=== PATIENT | female | born 1935 | race Caucasian/White ===

== ENCOUNTER 2016-12-31 07:36 | Day surgery (SDC) | payer MEDICARE, BC ==
--- NOTE | 2016-12-28 14:26 | HP ---
HISTORY OF PRESENT ILLNESS: Ms. Marino is a 81-year-old white female who was referred by her [facility] physician, Dr. Redmond for left labial lesion. She had a biopsy done by Dr. 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 She is ref erred today for definitive surgical therapy. She has previous hysterectomy in the past and also anterior repair with posterior elevate in 2010, w jose I performed. She does wear a incontinence pad daily and she is using Myrbetriq, but it is not helping much. PAST MEDICAL HISTORY: Significant for hyperlipidemia, glaucoma, GERD. PAST SURGICAL HISTORY: As noted, hysterectomy, anterior repair with posterior elevate, tonsillectom y, appendectomy, cholecystectomy. SOCIAL HISTORY: She is a nonsmoker, does not drink alcohol. ALLERGIES: She has no known drug allergies. FAMILY HISTORY: Noncontributory. PHYSICAL EXAMINATION: VITAL SIGNS: Her blood pressure is 120/60, pulse 80, respirations 18, height 63 inches, 135 pounds. BMI 23.9. PELVIC: She has approximately 1 cm area in the left labial minora region seen. There are no other abnormal lesions as the vulva appreciated vaginal vault without lesions. No significant cystocele or rectocele were appreciated. No mesh erosion of the posterior elevate was noted. ASSESSMENT: This is a 81-year-old white female with recent vulvar biopsy of the left vulva showing a high grade squamous cell dysplastic lesion. PLAN: Proceed with wide local excision of the lesion to rule out microinvasive cancer and also to t reat dysplasia. Risks and benefits of procedure discussed in detail, set for surgery on 12/31/2016.
[2016-12-28 14:37] VITALS: BMI 23.9
[2016-12-31] MEDS ORDERED: Lidocaine 2% w/Epinephrine 1:200K 20 ML VIAL ONE (08:15)
[2016-12-31] MEDS ORDERED: Clindamycin/D5W 900 mg/50 ml Premix Bag ONE (08:20)
[2016-12-31] MEDS ORDERED: Levofloxacin 500 mg/D5W 100 ml Premix Bag ONE (08:20)
[2016-12-31] MEDS ORDERED: Propofol 500 MG/50 ML VIAL ONE (08:37)
[2016-12-31] MEDS ORDERED: Propofol 200 MG/20 ML VIAL ONE (08:53)
--- NOTE | 2016-12-31 12:31 | OP ---
DATE OF PROCEDURE: 12/31/2016 PREOPERATIVE DIAGNOSES: A 81-year-old white female with left labial minora with high grade vulvar d ysplasia. 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 PROCEDURE PERFORMED: Wide local excision of left labia minora lesion. SURGEON: Liss Cueva M.D. ANESTHESIA: TIVA with local. ESTIMATED BLOOD LOSS: Less than 5 mL COMPLICATIONS: None. COUNTS: Correct x2. PATHOLOGY: Lesion with approximately 5 mm margins and elliptical removal. DISPOSITION: To the day stay and then plan for discharge home with follow up in 2-3 weeks. DESCRIPTION OF OPERATIVE PROCEDURE: The patient previously received informed consent. She is taken back to the operating room where she received a TIVA anesthetic agent by the Anesthesia service and was placed in dorsal lithotomy position with use of Alfredo stirrups. In and out catheterization of bladder was performed while sterile prep was carried out. The lesion was seen approximately 5 mm le martín in the left labial minora area was visualized. An elliptical margin was carried out approximat alyssa 5 mm both around the lesion with a marking pen. A 2% lidocaine with epinephrine was then infilt rated in that area and then #15 blade was utilized to remove the lesion with the margin elliptical m joao. Deep interrupted sutures of 2-0 Vicryl placed closing off the defect and also for hemostasis and then interrupted sutures, the superficial layer was then carried out superiorly and inferiorly closing the defect in its entirety with good hemostasis. The patient was then awakened out of her I V sedation and transferred to the day stay area and planned for discharge home today with followup o f her pathology in approximately 2-3 days.
== END 2016-12-31 10:25 | disposition home or self-care (01) ==
LOC: SDC 07:36
PROVIDERS: ATTEND Obstetrics & Gynecology
PROC: 0UBM0ZZ Excision of Vulva, Open Approach (ICD-10-PCS; principal; 2016-12-31)
DX: N90.3 Dysplasia of vulva, unspecified (principal); E78.5 Hyperlipidemia, unspecified; K21.9 Gastro-esophageal reflux disease without esophagitis; H40.9 Unspecified glaucoma; Z88.0 Allergy status to penicillin; Z90.49 Acquired absence of other specified parts of digestive tract; Z90.710 Acquired absence of both cervix and uterus; Z96.659 Presence of unspecified artificial knee joint; Z98.890 Other specified postprocedural states
CPT/HCPCS: 88305; J1956; J2704; J3490

== ENCOUNTER 2018-07-30 12:45 | Outpatient (CLI) | payer MEDICARE, BC ==
--- NOTE | 2018-07-30 15:32 | BD ---
DEXA SCAN: INDICATION: Osteoporosis screening. FINDINGS: Lumbar Spine: BMD (g/cm2) L1 0.971 T-Score: -0.2 Z-Score: 2.2 L2 0.944 T-Score: -0.8 Z-Score: 1.9 L3 1.041 T-Score: -0.4 Z-Score: 2.4 L4 0.930 T-Score: -1.2 Z-Score: 1.7 L1-L4 0.972 T-Score: -0.7 Z-Score: 2.1 Femoral Neck: 0.579 T-Score: -2.4 Z-Score: -0.1 Total Femur: 0.882 T-Score: -0.5 Z-Score: 1.7 Impression: Based on WHO criteria, the patient's bone mineral density is considered osteopenic. The patient is a t moderate risk for fracture. POS: [facility]PC
== END 2018-07-30 12:46 | disposition home or self-care (01) ==
LOC: BICMAMMO 12:45
PROVIDERS: ATTEND Internal Medicine Rheumatology
DX: M81.0 Age-related osteoporosis without current pathological fracture (principal); M85.89 Other specified disorders of bone density and structure, multiple sites
CPT/HCPCS: 77080

== ENCOUNTER 2021-05-27 14:39 | Inpatient (IN) | payer MEDICARE, BC ==
[2021-05-27 15:50] LABS: #Basophils 0.1 thou/uL (0.0-0.2); #Eosinphils 0.2 thou/uL (0.0-0.7); #Lymphocytes 1.4 thou/uL (1.20-3.40); #Monocytes 1.1 thou/uL (0.11-0.59); #Neutrophils 6.5 thou/uL (1.40-6.50); %Basophils 0.7 % (0.0-1.0); %Eosinophils 2.7 % (0.0-10.0); %Monocytes 11.4 % (0.0-10.0); %Neutrophils 70.2 % (42.0-75.0); Hemoglobin 5.9 g/dL (12.0-16.0); Mean Corpuscular HGB CONC 29.9 g/dL (32.0-36.0); Mean Corpuscular Hemoglobin 18.2 pg (27.0-31.0); Mean Corpuscular Volume 60.7 fL (78.0-98.0); Mean Platelet Volume 5.7 fL (7.4-10.4); Platelet Count 383 thou/uL (130-400); RBC Distribution Width 20.9 % (11.5-14.5); Red Blood Cell (RBC) Count 3.25 mill/uL (4.20-5.40); Reflex for Review?? YES; White Blood Cell (WBC) Count 9.2 thou/uL (4.8-10.8)
[2021-05-27 15:54] LABS: PTT 27.1 sec (22.9-36.1); Prothrombin Time 13.2 sec (12.0-14.7)
[2021-05-27 16:08] LABS: Anisocytosis MODERATE=16-30 cells (100X) (0-5/hpf); Burr Cells SLIGHT = 2-5 cells (100X) (0-1/hpf); Hypochromia SLIGHT = 6-15 cells (100X) (0-5/hpf); MDiff Complete? YES; Microcytosis SLIGHT = 6-15 cells (100X) (0-5/hpf); Ovalocytes SLIGHT = 2-5 cells (100X) (0-1/hpf); Platelet Morphology Comment Appears Adequate; Polychromasia SLIGHT = 2-3 cells (100X) (0-2/hpf); Target Cells SLIGHT = 2-5 cells (100X) (0-1/hpf)
[2021-05-27 16:20] LABS: ALT (SGPT) 15 U/L (8-55); AST (SGOT) 47 U/L (5-34); Albumin 3.5 g/dL (3.4-4.8); Alkaline Phosphatase 73 U/L (40-110); Anion Gap 17 mmol/L (10-20); BUN (Urea Nitrogen) 42 mg/dL (9.8-20.1); Bilirubin, Total 0.6 mg/dL (0.2-1.2); CK (CPK) 53 U/L (29-168); Calc. Creatinine Clearance 0 mL/min (70-130); Calcium 8.5 mg/dL (7.8-10.44); Carbon Dioxide 21 mmol/L (23-31); Chloride 104 mmol/L (98-107); Globulin 3.3 g/dL (2.4-3.5); Glucose 132 mg/dL (83-110); Potassium 4.9 mmol/L (3.5-5.1); Protein, Total 6.8 g/dL (5.8-8.1); Sodium 137 mmol/L (136-145)
[2021-05-27 16:25] LABS: CKMB 0.9 ng/mL (0-6.6)
[2021-05-27 17:31] LABS: Troponin I 0.047 ng/mL (< 0.028)
[2021-05-27] MEDS ORDERED: Acetaminophen 325 MG TAB PO PRN (18:22)
[2021-05-27] MEDS ORDERED: Acetaminophen 650 MG Suppository PR PRN (18:22)
[2021-05-27] MEDS ORDERED: Ondansetron PF 4 MG/2 ML Vial IVP PRN (18:22)
[2021-05-27] MEDS ORDERED: Melatonin 3 MG TAB PO PRN (18:31)
[2021-05-27] MEDS: Atorvastatin Calcium 40 MG TAB PO SCH ×2 (21:02→21:11)
[2021-05-27] MEDS: Pantoprazole 40 MG VIAL IVP SCH (21:02)
[2021-05-27] MEDS: hydrALAZINE 20 MG/ML VIAL SLOW IVP PRN (22:45)
[2021-05-28] MEDS: hydrALAZINE 20 MG/ML VIAL SLOW IVP PRN ×2 (03:05→12:46)
[2021-05-28] MEDS: Sodium Chloride 0.9% 1,000 ML IV SCH ×2 (03:05→23:30)
[2021-05-28 05:18] LABS: Hemoglobin 9.6 g/dL (12.0-16.0); Mean Corpuscular Hemoglobin 21.2 pg (27.0-31.0); Mean Corpuscular Volume 70.5 fL (78.0-98.0); Mean Platelet Volume 5.2 fL (7.4-10.4); Platelet Count 386 thou/uL (130-400); RBC Distribution Width 27.1 % (11.5-14.5); Red Blood Cell (RBC) Count 4.56 mill/uL (4.20-5.40); White Blood Cell (WBC) Count 12.4 thou/uL (4.8-10.8)
[2021-05-28 05:51] LABS: #Basophils 0.1 thou/uL (0.0-0.2); #Eosinphils 0.3 thou/uL (0.0-0.7); #Lymphocytes 1.6 thou/uL (1.20-3.40); #Neutrophils 9.4 thou/uL (1.40-6.50); %Basophils 0.7 % (0.0-1.0); %Eosinophils 2.8 % (0.0-10.0); %Lymphocytes 12.9 % (21.0-51.0); %Monocytes 8.3 % (0.0-10.0); %Neutrophils 75.4 % (42.0-75.0); Anisocytosis SLIGHT = 6-15 cells (100X) (0-5/hpf); Hypochromia SLIGHT = 6-15 cells (100X) (0-5/hpf); LDL Cholesterol, Calculated 55 mg/dL; MDiff Complete? YES; Microcytosis SLIGHT = 6-15 cells (100X) (0-5/hpf)
[2021-05-28 05:59] LABS: ALT (SGPT) 12 U/L (8-55); AST (SGOT) 27 U/L (5-34); Albumin 3.7 g/dL (3.4-4.8); Alkaline Phosphatase 73 U/L (40-110); Anion Gap 15 mmol/L (10-20); BUN (Urea Nitrogen) 32 mg/dL (9.8-20.1); Bilirubin, Total 2.2 mg/dL (0.2-1.2); Calc. Creatinine Clearance 29 mL/min (70-130); Calcium 8.7 mg/dL (7.8-10.44); Carbon Dioxide 19 mmol/L (23-31); Cardiac Risk 2.2 (Less than 4.5); Chloride 106 mmol/L (98-107); Cholesterol 150 mg/dl (< 200 Desired); Globulin 3.3 g/dL (2.4-3.5); Glucose 119 mg/dL (83-110); HDL Cholesterol 68 mg/dL (>60 Neg Risk); Iron 81 ug/dL (50-170); Iron Binding Capacity, Total 501 mcg/dL (265-497); Sodium 136 mmol/L (136-145)
[2021-05-28 06:18] LABS: Triglycerides 160 mg/dL (Less than 150)
[2021-05-28] MEDS: Pantoprazole 40 MG VIAL IVP SCH ×2 (07:37→20:02)
[2021-05-28 15:16] LABS: SARS-CoV-2 PCR by NAA Not Detected (NotDetected)
[2021-05-28] MEDS ORDERED: GoLYTELY 4,000 ml Bottle PO SCH (15:30)
[2021-05-28] MEDS: Atorvastatin Calcium 40 MG TAB PO SCH (19:59)
[2021-05-28] MEDS: Metoprolol Tartrate 25 MG TAB PO SCH (19:59)
[2021-05-29] MEDS: hydrALAZINE 20 MG/ML VIAL SLOW IVP PRN ×2 (04:56→15:12)
[2021-05-29] MEDS: Metoprolol Tartrate 25 MG TAB PO SCH ×2 (07:56→21:23)
[2021-05-29] MEDS: Pantoprazole 40 MG VIAL IVP SCH ×2 (07:56→21:23)
[2021-05-29] MEDS ORDERED: PROPOFOL 200 MG/20 ML VIAL ONE (10:17)
[2021-05-29] MEDS: metroNIDAZOLE 500 MG in Premix Bag 1 BAG IVPB SCH (17:41)
[2021-05-29] MEDS: Atorvastatin Calcium 40 MG TAB PO SCH (21:22)
[2021-05-29] MEDS: Sodium Chloride 0.9% 1,000 ML IV SCH (21:23)
[2021-05-30] MEDS: metroNIDAZOLE 500 MG in Premix Bag 1 BAG IVPB SCH ×3 (02:34→18:37)
[2021-05-30 05:14] LABS: Hemoglobin 8.3 g/dL (12.0-16.0); Mean Corpuscular HGB CONC 31.5 g/dL (32.0-36.0); Mean Corpuscular Hemoglobin 22.1 pg (27.0-31.0); Mean Corpuscular Volume 70.3 fL (78.0-98.0); Mean Platelet Volume 5.6 fL (7.4-10.4); Platelet Count 320 thou/uL (130-400); RBC Distribution Width 28.1 % (11.5-14.5); Red Blood Cell (RBC) Count 3.75 mill/uL (4.20-5.40); White Blood Cell (WBC) Count 10.2 thou/uL (4.8-10.8)
[2021-05-30 05:29] LABS: ALT (SGPT) 25 U/L (8-55); AST (SGOT) 31 U/L (5-34); Albumin 3.1 g/dL (3.4-4.8); Alkaline Phosphatase 64 U/L (40-110); Anion Gap 14 mmol/L (10-20); BUN (Urea Nitrogen) 16 mg/dL (9.8-20.1); Bilirubin, Total 1.9 mg/dL (0.2-1.2); Calc. Creatinine Clearance 33 mL/min (70-130); Calcium 7.9 mg/dL (7.8-10.44); Carbon Dioxide 20 mmol/L (23-31); Chloride 108 mmol/L (98-107); Globulin 2.5 g/dL (2.4-3.5); Glucose 103 mg/dL (83-110); Potassium 3.5 mmol/L (3.5-5.1); Protein, Total 5.6 g/dL (5.8-8.1); Sodium 138 mmol/L (136-145)
[2021-05-30 05:45] LABS: #Basophils 0.1 thou/uL (0.0-0.2); #Eosinphils 0.3 thou/uL (0.0-0.7); #Lymphocytes 1.3 thou/uL (1.20-3.40); #Monocytes 1.2 thou/uL (0.11-0.59); #Neutrophils 7.4 thou/uL (1.40-6.50); %Basophils 0.5 % (0.0-1.0); %Eosinophils 2.7 % (0.0-10.0); %Monocytes 11.3 % (0.0-10.0); %Neutrophils 72.4 % (42.0-75.0); Anisocytosis SLIGHT = 6-15 cells (100X) (0-5/hpf); Hypochromia SLIGHT = 6-15 cells (100X) (0-5/hpf); MDiff Complete? YES; Microcytosis SLIGHT = 6-15 cells (100X) (0-5/hpf)
[2021-05-30] MEDS: Metoprolol Tartrate 25 MG TAB PO SCH (07:48)
[2021-05-30] MEDS: Pantoprazole 40 MG VIAL IVP SCH ×2 (07:48→21:24)
[2021-05-30] MEDS ORDERED: Iron, Sodium Ferric Gluconate 250 MG in Sodium Chloride 0.9% 250 ML 250 ML IVPB SCH (12:30)
[2021-05-30] MEDS ORDERED: Losartan 25 MG TAB PO SCH (16:00)
[2021-05-30] MEDS ORDERED: Hydrocortisone Sod Succ/PF 100 mg/2 ml Vial IVP SCH (16:30)
[2021-05-30 16:51] LABS: #Eosinphils 0.2 thou/uL (0.0-0.7); #Lymphocytes 2.1 thou/uL (1.20-3.40); #Monocytes 0.6 thou/uL (0.11-0.59); #Neutrophils 7.3 thou/uL (1.40-6.50); %Basophils 0.4 % (0.0-1.0); %Eosinophils 2.4 % (0.0-10.0); %Lymphocytes 20.8 % (21.0-51.0); %Monocytes 5.6 % (0.0-10.0); %Neutrophils 70.9 % (42.0-75.0); Hemoglobin 10.7 g/dL (12.0-16.0); Mean Corpuscular HGB CONC 31.2 g/dL (32.0-36.0); Mean Corpuscular Volume 70.4 fL (78.0-98.0); Mean Platelet Volume 5.6 fL (7.4-10.4); Platelet Count 396 thou/uL (130-400); RBC Distribution Width 28.1 % (11.5-14.5); Red Blood Cell (RBC) Count 4.86 mill/uL (4.20-5.40); White Blood Cell (WBC) Count 10.3 thou/uL (4.8-10.8)
[2021-05-30 17:11] LABS: Anion Gap 14 mmol/L (10-20); BUN (Urea Nitrogen) 16 mg/dL (9.8-20.1); Calc. Creatinine Clearance 32 mL/min (70-130); Calcium 7.8 mg/dL (7.8-10.44); Carbon Dioxide 17 mmol/L (23-31); Chloride 109 mmol/L (98-107); Glucose 100 mg/dL (83-110); Potassium 3.6 mmol/L (3.5-5.1); Sodium 136 mmol/L (136-145)
[2021-05-30] MEDS: Sodium Chloride 0.9% 1,000 ML IV SCH (18:23)
[2021-05-30] MEDS: Atorvastatin Calcium 40 MG TAB PO SCH (21:24)
[2021-05-30] MEDS: Hydrocortisone Sod Succ/PF 100 mg/2 ml Vial IVP SCH (21:28)
[2021-05-31] MEDS: metroNIDAZOLE 500 MG in Premix Bag 1 BAG IVPB SCH ×3 (03:20→14:14)
[2021-05-31] MEDS: Hydrocortisone Sod Succ/PF 100 mg/2 ml Vial IVP SCH (05:33)
[2021-05-31 06:33] LABS: #Lymphocytes 0.6 thou/uL (1.20-3.40); #Monocytes 0.3 thou/uL (0.11-0.59); #Neutrophils 12.9 thou/uL (1.40-6.50); %Eosinophils 0.1 % (0.0-10.0); %Lymphocytes 4.3 % (21.0-51.0); %Neutrophils 93.6 % (42.0-75.0); Anisocytosis SLIGHT = 6-15 cells (100X) (0-5/hpf); Hemoglobin 9.1 g/dL (12.0-16.0); MDiff Complete? YES; Mean Corpuscular HGB CONC 29.5 g/dL (32.0-36.0); Mean Corpuscular Hemoglobin 21.2 pg (27.0-31.0); Mean Platelet Volume 5.4 fL (7.4-10.4); Platelet Count 330 thou/uL (130-400); RBC Distribution Width 28.5 % (11.5-14.5); Red Blood Cell (RBC) Count 4.27 mill/uL (4.20-5.40); White Blood Cell (WBC) Count 13.8 thou/uL (4.8-10.8)
[2021-05-31] MEDS: Sodium Chloride 0.9% 1,000 ML IV SCH (06:42)
[2021-05-31] MEDS ORDERED: Sodium Chloride 0.9% 500 ML IV SCH (08:30)
[2021-05-31] MEDS ORDERED: Losartan 25 MG TAB PO SCH (09:00)
[2021-05-31] MEDS: Metoprolol Tartrate 25 MG TAB PO SCH ×2 (09:06→23:59)
[2021-05-31] MEDS: Pantoprazole 40 MG VIAL IVP SCH (09:08)
[2021-05-31 10:20] LABS: Band 6 % (5-11); Lymphocytes 4 % (21-51); Monocytes 1 % (0-10); Neutrophil 89 % (42-75)
[2021-05-31 10:21] LABS: Hypochromia SLIGHT = 6-15 cells (100X) (0-5/hpf); Polychromasia MODERATE = 3-4 cells (100X) (0-2/hpf)
[2021-05-31] MEDS: hydrALAZINE 20 MG/ML VIAL SLOW IVP PRN (14:29)
[2021-05-31 16:37] LABS: INR-International Normal Ratio 1.2; Prothrombin Time 15.4 sec (12.0-14.7)
[2021-05-31 16:38] LABS: PTT 36.1 sec (22.9-36.1)
[2021-05-31] MEDS ORDERED: Lidocaine 1% MPF 2 ML VIAL ONE (19:09)
[2021-05-31] MEDS ORDERED: Fentanyl 100 MCG/2 ML VIAL ONE (19:30)
[2021-05-31] MEDS ORDERED: Ketamine 50 MG/ML (10ML VIAL) ONE (19:31)
[2021-05-31] MEDS ORDERED: Lidocaine 1% PF 5 ML VIAL ONE (19:45)
[2021-05-31] MEDS ORDERED: PROPOFOL 200 MG/20 ML VIAL ONE (19:45)
[2021-05-31] MEDS ORDERED: ePHEDrine 50 MG/ML VIAL ONE (19:45)
[2021-05-31] MEDS ORDERED: Ondansetron PF 4 MG/2 ML Vial ONE (19:45)
[2021-05-31] MEDS ORDERED: Rocuronium Bromide 10 MG/ML (10ML VIAL) ONE (19:45)
[2021-05-31] MEDS ORDERED: PHENYLEPHRINE-NS 100 MCG/ML 10 ML SYRINGE ONE (19:45)
[2021-05-31] MEDS ORDERED: EPINEPHrine 1 MG/ML AMP ONE (19:53)
[2021-05-31] MEDS ORDERED: Bupivacaine 0.25% HCL 30 ML VIAL ONE (19:53)
[2021-05-31] MEDS ORDERED: Albumin 5% 500 ML ONE (20:48)
[2021-05-31] MEDS ORDERED: Albuterol Sulfate HFA (OR ONLY) ONE (22:33)
[2021-05-31] MEDS ORDERED: Morphine 4 MG/ML VIAL SLOW IVP PRN (23:03)
[2021-05-31] MEDS: Lactated Ringer's 1,000 ML IV SCH (23:27)
[2021-05-31] MEDS ORDERED: Acetaminophen 325 MG TAB ONE ×2 (23:46→23:47)
[2021-05-31] MEDS ORDERED: traMADol HCl 50 MG TAB ONE (23:48)
[2021-05-31] MEDS: traMADol HCl 50 MG TAB PO SCH (23:51)
[2021-05-31] MEDS: Acetaminophen 325 MG TAB PO SCH (23:53)
[2021-05-31] MEDS: Atorvastatin Calcium 40 MG TAB PO SCH (23:58)
[2021-06-01 01:10] LABS: Actual Bicarbonate (HCO3a) 13.7 mEq/L (22-28); Base Excess (BEa) -11.9 mEq/L (-2.0 to +3.0); CO2 Tension 30.4 mmHg (35.0-45.0); Calcium, Ionized (arterial) 1.06 mmol/L (1.12-1.30); Carboxyhemoglobin (COHb) 0.6 gm% (0.0-3.0); Hemoglobin (Hb) 9.1 g/dL (12.0-16.0); O2 Tension (PaO2), arterial 90.2 mmHg (> 60.0); Potassium - ABG Lab 3.31 mmol/L (3.70-5.30); pH, Arterial 7.27 (7.35-7.45)
[2021-06-01 01:12] LABS: Puncture Site LRA
[2021-06-01] MEDS ORDERED: Sodium Bicarb 50 MEQ/50 ML Abboject 8.4% SYRINGE ONE (01:21)
[2021-06-01] MEDS ORDERED: Calcium Chloride 1 GM/10 ML Abboject SYRINGE IVP SCH (03:15)
[2021-06-01] MEDS ORDERED: Calcium Chloride 1 GM/10 ML Abboject SYRINGE ONE (03:23)
[2021-06-01 04:22] LABS: Base Excess (BEa) -7.5 mEq/L (-2.0 to +3.0); CO2 Tension 30.7 mmHg (35.0-45.0); Calcium, Ionized (arterial) 1.14 mmol/L (1.12-1.30); Carboxyhemoglobin (COHb) 0.6 gm% (0.0-3.0); Hemoglobin (Hb) 8.8 g/dL (12.0-16.0); O2 Tension (PaO2), arterial 82.3 mmHg (> 60.0); Potassium - ABG Lab 3.26 mmol/L (3.70-5.30); pH, Arterial 7.36 (7.35-7.45)
[2021-06-01 04:24] LABS: ALV-art Gradient 78.965 mmHg (0-20); Puncture Site LRA
[2021-06-01] MEDS: Sodium Chloride 0.9% 1,000 ML IV SCH (04:51)
[2021-06-01 05:01] LABS: Hemoglobin 8.4 g/dL (12.0-16.0); Mean Corpuscular HGB CONC 30.6 g/dL (32.0-36.0); Mean Corpuscular Hemoglobin 22.4 pg (27.0-31.0); Mean Corpuscular Volume 73.3 fL (78.0-98.0); Mean Platelet Volume 5.2 fL (7.4-10.4); Platelet Count 280 thou/uL (130-400); RBC Distribution Width 28.6 % (11.5-14.5); Red Blood Cell (RBC) Count 3.74 mill/uL (4.20-5.40); White Blood Cell (WBC) Count 16.6 thou/uL (4.8-10.8)
[2021-06-01 05:08] LABS: Lactic Acid 3.2 mmol/L (0.5-2.2)
[2021-06-01] MEDS ORDERED: traMADol HCl 50 MG TAB ONE ×3 (05:29→15:48)
[2021-06-01] MEDS ORDERED: Acetaminophen 500 MG TAB ONE (05:29)
[2021-06-01 05:40] LABS: Anion Gap 15 mmol/L (10-20); BUN (Urea Nitrogen) 23 mg/dL (9.8-20.1); Calc. Creatinine Clearance 25 mL/min (70-130); Calcium 8.2 mg/dL (7.8-10.44); Carbon Dioxide 17 mmol/L (23-31); Chloride 109 mmol/L (98-107); Glucose 209 mg/dL (83-110); Magnesium 1.1 mg/dL (1.6-2.6); Potassium 3.2 mmol/L (3.5-5.1); Sodium 138 mmol/L (136-145)
[2021-06-01] MEDS: Acetaminophen 325 MG TAB PO SCH ×3 (05:45→16:11)
[2021-06-01] MEDS: traMADol HCl 50 MG TAB PO SCH ×3 (05:45→16:11)
[2021-06-01 06:07] LABS: #Lymphocytes 0.3 thou/uL (1.20-3.40); #Monocytes 0.9 thou/uL (0.11-0.59); #Neutrophils 15.4 thou/uL (1.40-6.50); %Basophils 0.1 % (0.0-1.0); %Eosinophils 0.1 % (0.0-10.0); %Lymphocytes 1.5 % (21.0-51.0); %Monocytes 5.5 % (0.0-10.0); %Neutrophils 92.7 % (42.0-75.0); Anisocytosis SLIGHT = 6-15 cells (100X) (0-5/hpf); Hypochromia SLIGHT = 6-15 cells (100X) (0-5/hpf); MDiff Complete? YES; Microcytosis SLIGHT = 6-15 cells (100X) (0-5/hpf)
[2021-06-01] MEDS: metroNIDAZOLE 500 MG in Premix Bag 1 BAG IVPB SCH ×2 (06:32)
[2021-06-01] MEDS ORDERED: Lactated Ringer's 500 ML IV SCH (07:45)
[2021-06-01] MEDS ORDERED: Magnesium Sulfate In Water 4 GM in Premix Bag 1 BAG IVPB SCH (08:00)
[2021-06-01] MEDS ORDERED: Potassium Phosphate 30 MMOL in Sodium Chloride 0.9% 250 ML 250 ML IVPB SCH ×2 (08:00→13:00)
[2021-06-01] MEDS: Lactated Ringer's 1,000 ML IV SCH (08:23)
[2021-06-01] MEDS ORDERED: Meropenem 1 GM in Sodium Chloride 0.9% 100 ML IVPB SCH (09:00)
[2021-06-01] MEDS ORDERED: Metoprolol Tartrate 25 MG TAB PO SCH (09:45)
[2021-06-01] MEDS: Pantoprazole 40 MG VIAL IVP SCH ×3 (10:50→20:39)
[2021-06-01 12:33] LABS: #Lymphocytes 0.5 thou/uL (1.20-3.40); #Monocytes 1.2 thou/uL (0.11-0.59); #Neutrophils 12.9 thou/uL (1.40-6.50); %Eosinophils 0.2 % (0.0-10.0); %Lymphocytes 3.3 % (21.0-51.0); %Monocytes 8.4 % (0.0-10.0); %Neutrophils 88.1 % (42.0-75.0); Hemoglobin 7.7 g/dL (12.0-16.0); Mean Corpuscular HGB CONC 30.5 g/dL (32.0-36.0); Mean Corpuscular Hemoglobin 22.2 pg (27.0-31.0); Mean Platelet Volume 5.7 fL (7.4-10.4); Platelet Count 274 thou/uL (130-400); RBC Distribution Width 28.5 % (11.5-14.5); Red Blood Cell (RBC) Count 3.45 mill/uL (4.20-5.40); White Blood Cell (WBC) Count 14.6 thou/uL (4.8-10.8)
[2021-06-01 12:40] LABS: Lactic Acid 1.3 mmol/L (0.5-2.2)
[2021-06-01 12:50] LABS: Anion Gap 13 mmol/L (10-20); BUN (Urea Nitrogen) 21 mg/dL (9.8-20.1); Calc. Creatinine Clearance 28 mL/min (70-130); Calcium 7.5 mg/dL (7.8-10.44); Carbon Dioxide 19 mmol/L (23-31); Chloride 111 mmol/L (98-107); Glucose 123 mg/dL (83-110); Magnesium 2.3 mg/dL (1.6-2.6); Phosphorus 3.2 mg/dL (2.3-4.7); Potassium 3.3 mmol/L (3.5-5.1); Sodium 140 mmol/L (136-145)
[2021-06-01 13:19] LABS: Anisocytosis MODERATE=16-30 cells (100X) (0-5/hpf); Hypochromia SLIGHT = 6-15 cells (100X) (0-5/hpf); MDiff Complete? YES; Microcytosis SLIGHT = 6-15 cells (100X) (0-5/hpf); Ovalocytes SLIGHT = 2-5 cells (100X) (0-1/hpf); Platelet Morphology Comment Appears Adequate; Poikilocytosis SLIGHT = 6-15 cells (100X) (0-5/hpf); Polychromasia SLIGHT = 2-3 cells (100X) (0-2/hpf); Schistocytes SLIGHT = 2-5 cells (100X) (0-1/hpf); Spherocytes SLIGHT = 1-5 cells (100X) (None Seen); Target Cells SLIGHT = 2-5 cells (100X) (0-1/hpf)
[2021-06-01] MEDS ORDERED: Acetaminophen 325 MG TAB ONE (15:49)
[2021-06-01] MEDS: Meropenem 500 MG in Sodium Chloride 0.9% 100 ML IVPB SCH (17:32)
[2021-06-01 18:26] LABS: Anion Gap 13 mmol/L (10-20); BUN (Urea Nitrogen) 22 mg/dL (9.8-20.1); Calc. Creatinine Clearance 26 mL/min (70-130); Carbon Dioxide 21 mmol/L (23-31); Chloride 109 mmol/L (98-107); Glucose 104 mg/dL (83-110); Potassium 4.3 mmol/L (3.5-5.1); Sodium 139 mmol/L (136-145)
[2021-06-01] MEDS: Acetaminophen/Codeine 30-300mg Tablet PO SCH (18:30)
[2021-06-01] MEDS: Atorvastatin Calcium 40 MG TAB PO SCH (20:39)
[2021-06-02] MEDS: Acetaminophen/Codeine 30-300mg Tablet PO SCH ×4 (00:26→19:33)
[2021-06-02] MEDS: Meropenem 500 MG in Sodium Chloride 0.9% 100 ML IVPB SCH ×2 (05:38→19:28)
[2021-06-02 05:46] LABS: #Eosinphils 0.2 thou/uL (0.0-0.7); #Lymphocytes 0.8 thou/uL (1.20-3.40); #Monocytes 1.3 thou/uL (0.11-0.59); #Neutrophils 12.5 thou/uL (1.40-6.50); %Lymphocytes 5.1 % (21.0-51.0); %Monocytes 8.9 % (0.0-10.0); %Neutrophils 84.9 % (42.0-75.0)
[2021-06-02 05:54] LABS: Anion Gap 14 mmol/L (10-20); BUN (Urea Nitrogen) 23 mg/dL (9.8-20.1); Calc. Creatinine Clearance 27 mL/min (70-130); Calcium 8.1 mg/dL (7.8-10.44); Carbon Dioxide 19 mmol/L (23-31); Chloride 110 mmol/L (98-107); Glucose 105 mg/dL (83-110); Magnesium 2.2 mg/dL (1.6-2.6); Phosphorus 3.7 mg/dL (2.3-4.7); Potassium 3.9 mmol/L (3.5-5.1); Sodium 139 mmol/L (136-145)
[2021-06-02 05:55] LABS: Burr Cells SLIGHT = 2-5 cells (100X) (0-1/hpf); Hemoglobin 8.4 g/dL (12.0-16.0); Hypochromia SLIGHT = 6-15 cells (100X) (0-5/hpf); MDiff Complete? YES; Mean Corpuscular HGB CONC 30.2 g/dL (32.0-36.0); Mean Corpuscular Hemoglobin 22.7 pg (27.0-31.0); Mean Corpuscular Volume 75.1 fL (78.0-98.0); Mean Platelet Volume 5.8 fL (7.4-10.4); Microcytosis SLIGHT = 6-15 cells (100X) (0-5/hpf); Platelet Count 264 thou/uL (130-400); Platelet Morphology Comment Appears Adequate; Polychromasia SLIGHT = 2-3 cells (100X) (0-2/hpf); RBC Distribution Width 28.7 % (11.5-14.5); Red Blood Cell (RBC) Count 3.72 mill/uL (4.20-5.40); Target Cells MODERATE= 6-15 cells (100X) (0-1/hpf); White Blood Cell (WBC) Count 14.7 thou/uL (4.8-10.8)
[2021-06-02] MEDS ORDERED: Metoprolol Tartrate 25 MG TAB PO SCH (08:46)
[2021-06-02] MEDS ORDERED: Losartan 25 MG TAB PO SCH (09:00)
[2021-06-02] MEDS ORDERED: Lactated Ringer's 1,000 ML IV SCH (10:30)
[2021-06-02] MEDS: Pantoprazole 40 MG VIAL IVP SCH ×2 (11:44→20:41)
[2021-06-02] MEDS ORDERED: Furosemide 20 MG/2 ML VIAL SLOW IVP SCH ×3 (14:30→23:00)
[2021-06-02 19:46] LABS: #Eosinphils 0.1 thou/uL (0.0-0.7); #Monocytes 1.1 thou/uL (0.11-0.59); #Neutrophils 11.2 thou/uL (1.40-6.50); %Basophils 0.1 % (0.0-1.0); %Eosinophils 1.1 % (0.0-10.0); %Monocytes 8.5 % (0.0-10.0); %Neutrophils 83.3 % (42.0-75.0); Hemoglobin 8.2 g/dL (12.0-16.0); Mean Corpuscular HGB CONC 29.2 g/dL (32.0-36.0); Mean Corpuscular Hemoglobin 21.7 pg (27.0-31.0); Mean Corpuscular Volume 74.3 fL (78.0-98.0); Mean Platelet Volume 5.5 fL (7.4-10.4); Platelet Count 275 thou/uL (130-400); RBC Distribution Width 29.4 % (11.5-14.5); Red Blood Cell (RBC) Count 3.76 mill/uL (4.20-5.40); White Blood Cell (WBC) Count 13.5 thou/uL (4.8-10.8)
[2021-06-02 20:04] LABS: Band 2 % (5-11); Hypochromia SLIGHT = 6-15 cells (100X) (0-5/hpf); Lymphocytes 5 % (21-51); MDiff Complete? YES; Macrocytosis SLIGHT = 6-15 cells (100X) (0-5/hpf); Monocytes 16 % (0-10); Neutrophil 76 % (42-75); Platelet Morphology Comment Appears Adequate; Reactive Lymphocytes 1 % (0-10)
[2021-06-02 20:10] LABS: Anion Gap 13 mmol/L (10-20); BUN (Urea Nitrogen) 24 mg/dL (9.8-20.1); Calc. Creatinine Clearance 26 mL/min (70-130); Calcium 8.4 mg/dL (7.8-10.44); Carbon Dioxide 22 mmol/L (23-31); Chloride 108 mmol/L (98-107); Glucose 154 mg/dL (83-110); Phosphorus 2.2 mg/dL (2.3-4.7); Potassium 3.9 mmol/L (3.5-5.1); Sodium 139 mmol/L (136-145)
[2021-06-02 20:15] LABS: Troponin I 4.324 ng/mL (< 0.028)
[2021-06-02] MEDS: Heparin 5,000 UNITS/ML VIAL SC SCH (20:43)
[2021-06-02] MEDS: Latanoprost 0.005% Ophth Soln 2.5 ml Bottle L EYE SCH (20:47)
[2021-06-02] MEDS: Atorvastatin Calcium 40 MG TAB PO SCH (21:26)
[2021-06-02] MEDS: Metoprolol Tartrate 25 MG TAB PO SCH (21:27)
[2021-06-03] MEDS: Acetaminophen/Codeine 30-300mg Tablet PO SCH ×5 (00:12→23:19)
[2021-06-03 01:49] LABS: Troponin I 4.077 ng/mL (< 0.028)
[2021-06-03] MEDS: Meropenem 500 MG in Sodium Chloride 0.9% 100 ML IVPB SCH ×2 (04:52→18:16)
[2021-06-03 05:26] LABS: #Basophils 0.1 thou/uL (0.0-0.2); #Eosinphils 0.4 thou/uL (0.0-0.7); #Lymphocytes 1.2 thou/uL (1.20-3.40); #Monocytes 1.2 thou/uL (0.11-0.59); #Neutrophils 9.9 thou/uL (1.40-6.50); %Basophils 0.4 % (0.0-1.0); %Lymphocytes 9.2 % (21.0-51.0); %Monocytes 9.2 % (0.0-10.0); %Neutrophils 78.2 % (42.0-75.0); Mean Corpuscular HGB CONC 30.3 g/dL (32.0-36.0); Mean Corpuscular Hemoglobin 22.2 pg (27.0-31.0); Mean Corpuscular Volume 73.2 fL (78.0-98.0); Mean Platelet Volume 5.8 fL (7.4-10.4); Platelet Count 265 thou/uL (130-400); RBC Distribution Width 29.5 % (11.5-14.5); Red Blood Cell (RBC) Count 3.63 mill/uL (4.20-5.40); White Blood Cell (WBC) Count 12.6 thou/uL (4.8-10.8)
[2021-06-03 05:44] LABS: Anion Gap 10 mmol/L (10-20); BUN (Urea Nitrogen) 23 mg/dL (9.8-20.1); Calc. Creatinine Clearance 30 mL/min (70-130); Calcium 8.6 mg/dL (7.8-10.44); Carbon Dioxide 27 mmol/L (23-31); Chloride 105 mmol/L (98-107); Glucose 111 mg/dL (83-110); Magnesium 1.7 mg/dL (1.6-2.6); Phosphorus 2.1 mg/dL (2.3-4.7); Potassium 3.5 mmol/L (3.5-5.1); Sodium 138 mmol/L (136-145)
[2021-06-03 05:59] LABS: Troponin I 4.466 ng/mL (< 0.028)
[2021-06-03] MEDS ORDERED: Potassium Phosphate 30 MMOL in Sodium Chloride 0.9% 250 ML 250 ML IVPB SCH (06:45)
[2021-06-03] MEDS ORDERED: Magnesium Sulfate 3 GM in Sodium Chloride 0.9% 100 ML IVPB SCH (06:45)
[2021-06-03] MEDS ORDERED: Aspirin 325 mg Enteric Coated Tablet PO SCH (08:00)
[2021-06-03] MEDS: Losartan 25 MG TAB PO SCH (08:15)
[2021-06-03] MEDS: Hydrochlorothiazide 25 MG TAB PO SCH (08:15)
[2021-06-03] MEDS: Atorvastatin Calcium 40 MG TAB PO SCH ×2 (08:16→20:32)
[2021-06-03] MEDS: Heparin 5,000 UNITS/ML VIAL SC SCH ×3 (08:16→20:32)
[2021-06-03] MEDS: Metoprolol Tartrate 25 MG TAB PO SCH ×2 (08:17→20:32)
[2021-06-03] MEDS: Pantoprazole 40 MG VIAL IVP SCH ×2 (08:17→20:33)
[2021-06-03 18:52] LABS: Anion Gap 15 mmol/L (10-20); BUN (Urea Nitrogen) 24 mg/dL (9.8-20.1); Calc. Creatinine Clearance 34 mL/min (70-130); Calcium 8.5 mg/dL (7.8-10.44); Carbon Dioxide 25 mmol/L (23-31); Chloride 106 mmol/L (98-107); Glucose 136 mg/dL (83-110); Magnesium 2.3 mg/dL (1.6-2.6); Phosphorus 3.6 mg/dL (2.3-4.7); Potassium 4.4 mmol/L (3.5-5.1); Sodium 142 mmol/L (136-145)
[2021-06-03] MEDS: Latanoprost 0.005% Ophth Soln 2.5 ml Bottle L EYE SCH (20:33)
[2021-06-03] MEDS: hydrALAZINE 20 MG/ML VIAL SLOW IVP PRN (23:23)
[2021-06-04 04:58] LABS: Anion Gap 12 mmol/L (10-20); BUN (Urea Nitrogen) 24 mg/dL (9.8-20.1); Calc. Creatinine Clearance 41 mL/min (70-130); Calcium 8.3 mg/dL (7.8-10.44); Carbon Dioxide 27 mmol/L (23-31); Chloride 103 mmol/L (98-107); Glucose 107 mg/dL (83-110); Phosphorus 2.7 mg/dL (2.3-4.7); Potassium 4.2 mmol/L (3.5-5.1); Sodium 138 mmol/L (136-145)
[2021-06-04] MEDS: Acetaminophen/Codeine 30-300mg Tablet PO SCH ×3 (04:59→17:48)
[2021-06-04] MEDS: Meropenem 500 MG in Sodium Chloride 0.9% 100 ML IVPB SCH (04:59)
[2021-06-04 05:03] LABS: #Basophils 0.1 thou/uL (0.0-0.2); #Eosinphils 0.6 thou/uL (0.0-0.7); #Lymphocytes 1.4 thou/uL (1.20-3.40); #Monocytes 1.1 thou/uL (0.11-0.59); #Neutrophils 9.3 thou/uL (1.40-6.50); %Basophils 0.6 % (0.0-1.0); %Eosinophils 4.8 % (0.0-10.0); %Lymphocytes 11.3 % (21.0-51.0); %Monocytes 8.7 % (0.0-10.0); %Neutrophils 74.6 % (42.0-75.0); Anisocytosis SLIGHT = 6-15 cells (100X) (0-5/hpf); Band 10 % (5-11); Eosinophils 2 % (0-10); Hemoglobin 7.7 g/dL (12.0-16.0); Hypochromia SLIGHT = 6-15 cells (100X) (0-5/hpf); Lymphocytes 10 % (21-51); MDiff Complete? YES; Mean Corpuscular HGB CONC 30.1 g/dL (32.0-36.0); Mean Corpuscular Hemoglobin 22.2 pg (27.0-31.0); Mean Corpuscular Volume 73.9 fL (78.0-98.0); Mean Platelet Volume 5.5 fL (7.4-10.4); Microcytosis SLIGHT = 6-15 cells (100X) (0-5/hpf); Monocytes 8 % (0-10); Neutrophil 70 % (42-75); Platelet Count 286 thou/uL (130-400); Platelet Morphology Comment Appears Adequate; Polychromasia SLIGHT = 2-3 cells (100X) (0-2/hpf); RBC Distribution Width 30.4 % (11.5-14.5); Red Blood Cell (RBC) Count 3.46 mill/uL (4.20-5.40); White Blood Cell (WBC) Count 12.4 thou/uL (4.8-10.8)
[2021-06-04] MEDS: Heparin 5,000 UNITS/ML VIAL SC SCH ×3 (08:40→21:20)
[2021-06-04] MEDS: Hydrochlorothiazide 25 MG TAB PO SCH (08:41)
[2021-06-04] MEDS: Losartan 25 MG TAB PO SCH ×2 (08:41→21:19)
[2021-06-04] MEDS: Metoprolol Tartrate 25 MG TAB PO SCH ×2 (08:41→21:20)
[2021-06-04] MEDS: Pantoprazole 40 MG VIAL IVP SCH ×2 (08:41→21:20)
[2021-06-04] MEDS: Atorvastatin Calcium 40 MG TAB PO SCH ×2 (08:42→21:19)
[2021-06-04] MEDS ORDERED: Iopamidol-370 76% 500 ML 1 ML ONE (10:23)
[2021-06-04] MEDS ORDERED: Furosemide 20 MG TAB PO SCH (11:30)
[2021-06-04 16:20] LABS: SARS-CoV-2 PCR by NAA Not Detected (NotDetected)
[2021-06-04] MEDS: Meropenem 1 GM in Sodium Chloride 0.9% 100 ML IVPB SCH (17:48)
[2021-06-04] MEDS: Latanoprost 0.005% Ophth Soln 2.5 ml Bottle L EYE SCH (21:21)
[2021-06-05] MEDS: Acetaminophen/Codeine 30-300mg Tablet PO SCH ×4 (00:22→18:12)
[2021-06-05 04:33] LABS: #Basophils 0.1 thou/uL (0.0-0.2); #Lymphocytes 1.4 thou/uL (1.20-3.40); #Monocytes 1.1 thou/uL (0.11-0.59); #Neutrophils 8.6 thou/uL (1.40-6.50); %Basophils 0.8 % (0.0-1.0); %Eosinophils 8.4 % (0.0-10.0); %Lymphocytes 11.4 % (21.0-51.0); %Neutrophils 70.4 % (42.0-75.0); Hemoglobin 8.3 g/dL (12.0-16.0); Mean Corpuscular HGB CONC 30.1 g/dL (32.0-36.0); Mean Corpuscular Hemoglobin 22.6 pg (27.0-31.0); Mean Corpuscular Volume 75.2 fL (78.0-98.0); Mean Platelet Volume 5.8 fL (7.4-10.4); Platelet Count 334 thou/uL (130-400); RBC Distribution Width 30.9 % (11.5-14.5); Red Blood Cell (RBC) Count 3.67 mill/uL (4.20-5.40); White Blood Cell (WBC) Count 12.2 thou/uL (4.8-10.8)
[2021-06-05] MEDS: Meropenem 1 GM in Sodium Chloride 0.9% 100 ML IVPB SCH ×2 (04:58→18:13)
[2021-06-05 04:59] LABS: Anion Gap 11 mmol/L (10-20); BUN (Urea Nitrogen) 23 mg/dL (9.8-20.1); Calc. Creatinine Clearance 43 mL/min (70-130); Calcium 8.5 mg/dL (7.8-10.44); Carbon Dioxide 30 mmol/L (23-31); Chloride 99 mmol/L (98-107); Glucose 89 mg/dL (83-110); Magnesium 1.7 mg/dL (1.6-2.6); Phosphorus 2.7 mg/dL (2.3-4.7); Potassium 4.1 mmol/L (3.5-5.1); Sodium 136 mmol/L (136-145)
[2021-06-05] MEDS: Furosemide 20 MG TAB PO SCH (08:34)
[2021-06-05] MEDS: Heparin 5,000 UNITS/ML VIAL SC SCH ×3 (08:34→20:48)
[2021-06-05] MEDS: Pantoprazole 40 MG VIAL IVP SCH (08:35)
[2021-06-05] MEDS: Hydrochlorothiazide 25 MG TAB PO SCH (08:35)
[2021-06-05] MEDS: Atorvastatin Calcium 40 MG TAB PO SCH (08:35)
[2021-06-05] MEDS: Losartan 25 MG TAB PO SCH ×2 (08:35→20:48)
[2021-06-05] MEDS: Metoprolol Tartrate 25 MG TAB PO SCH ×2 (08:35→20:48)
[2021-06-05] MEDS ORDERED: Ibuprofen 200 MG TAB PO PRN (12:28)
[2021-06-05] MEDS ORDERED: traMADol HCl 50 MG TAB PO PRN (12:28)
[2021-06-05] MEDS ORDERED: Magnesium 2 GM/50 ML(in water) 2 GM in Premix Bag 1 BAG IVPB SCH (12:30)
[2021-06-05] MEDS ORDERED: Magnesium Sulfate 2 GM in Sodium Chloride 0.9% 100 ML IV SCH (12:30)
[2021-06-05] MEDS: Acetaminophen 500 MG TAB PO SCH ×2 (13:04→18:12)
[2021-06-05] MEDS: traMADol HCl 50 MG TAB PO SCH ×2 (14:22→21:22)
[2021-06-05] MEDS: Latanoprost 0.005% Ophth Soln 2.5 ml Bottle L EYE SCH (21:21)
[2021-06-06] MEDS: Acetaminophen/Codeine 30-300mg Tablet PO SCH ×4 (00:23→17:45)
[2021-06-06] MEDS: Acetaminophen 500 MG TAB PO SCH ×5 (00:23→18:49)
[2021-06-06] MEDS: Meropenem 1 GM in Sodium Chloride 0.9% 100 ML IVPB SCH ×2 (05:06→18:19)
[2021-06-06] MEDS: traMADol HCl 50 MG TAB PO SCH ×3 (05:07→21:26)
[2021-06-06 07:10] LABS: #Basophils 0.1 thou/uL (0.0-0.2); #Eosinphils 0.9 thou/uL (0.0-0.7); #Lymphocytes 1.3 thou/uL (1.20-3.40); #Neutrophils 6.6 thou/uL (1.40-6.50); %Eosinophils 9.3 % (0.0-10.0); %Lymphocytes 13.1 % (21.0-51.0); %Monocytes 9.6 % (0.0-10.0); %Neutrophils 66.9 % (42.0-75.0); Hemoglobin 7.3 g/dL (12.0-16.0); Mean Corpuscular HGB CONC 30.5 g/dL (32.0-36.0); Mean Corpuscular Hemoglobin 22.9 pg (27.0-31.0); Mean Corpuscular Volume 75.2 fL (78.0-98.0); Mean Platelet Volume 6.4 fL (7.4-10.4); Platelet Count 310 thou/uL (130-400); RBC Distribution Width 31.4 % (11.5-14.5); Red Blood Cell (RBC) Count 3.19 mill/uL (4.20-5.40); White Blood Cell (WBC) Count 9.8 thou/uL (4.8-10.8)
[2021-06-06 07:23] LABS: Anion Gap 11 mmol/L (10-20); BUN (Urea Nitrogen) 29 mg/dL (9.8-20.1); Calc. Creatinine Clearance 36 mL/min (70-130); Calcium 8.2 mg/dL (7.8-10.44); Carbon Dioxide 32 mmol/L (23-31); Chloride 96 mmol/L (98-107); Glucose 99 mg/dL (83-110); Magnesium 1.8 mg/dL (1.6-2.6); Phosphorus 2.3 mg/dL (2.3-4.7); Potassium 3.8 mmol/L (3.5-5.1); Sodium 135 mmol/L (136-145)
[2021-06-06 07:53] LABS: Hypochromia SLIGHT = 6-15 cells (100X) (0-5/hpf); MDiff Complete? YES; Microcytosis SLIGHT = 6-15 cells (100X) (0-5/hpf); Platelet Morphology Comment Appears Adequate; Polychromasia SLIGHT = 2-3 cells (100X) (0-2/hpf)
[2021-06-06] MEDS ORDERED: Polyethylene Glycol 3350 17 GM Packet PO PRN (09:06)
[2021-06-06] MEDS ORDERED: Ferrous Sulfate 325 MG TAB PO SCH (09:15)
[2021-06-06] MEDS ORDERED: Amlodipine 5 MG TAB PO SCH (09:15)
[2021-06-06] MEDS: Metoprolol Tartrate 25 MG TAB PO SCH ×2 (09:29→21:26)
[2021-06-06] MEDS: Atorvastatin Calcium 40 MG TAB PO SCH (09:30)
[2021-06-06] MEDS: Furosemide 20 MG TAB PO SCH (09:31)
[2021-06-06] MEDS: Heparin 5,000 UNITS/ML VIAL SC SCH ×3 (09:31→21:26)
[2021-06-06] MEDS: Ascorbic Acid 500 mg Chewable Tablet PO SCH ×2 (09:39→21:26)
[2021-06-06] MEDS: Ferrous Sulfate 325 MG TAB PO SCH (09:40)
[2021-06-06] MEDS: Senokot S 8.6-50 MG TAB PO SCH (21:27)
[2021-06-06] MEDS: Latanoprost 0.005% Ophth Soln 2.5 ml Bottle L EYE SCH (21:27)
[2021-06-07] MEDS: Acetaminophen 500 MG TAB PO SCH ×4 (00:09→17:03)
[2021-06-07] MEDS: Acetaminophen/Codeine 30-300mg Tablet PO SCH ×5 (02:06→22:59)
[2021-06-07 05:15] LABS: #Basophils 0.1 thou/uL (0.0-0.2); #Eosinphils 1.2 thou/uL (0.0-0.7); #Lymphocytes 1.8 thou/uL (1.20-3.40); #Monocytes 1.5 thou/uL (0.11-0.59); #Neutrophils 5.6 thou/uL (1.40-6.50); %Basophils 1.2 % (0.0-1.0); %Eosinophils 11.5 % (0.0-10.0); %Lymphocytes 17.8 % (21.0-51.0); %Monocytes 14.9 % (0.0-10.0); %Neutrophils 54.7 % (42.0-75.0); Hemoglobin 7.5 g/dL (12.0-16.0); Mean Corpuscular HGB CONC 30.2 g/dL (32.0-36.0); Mean Corpuscular Hemoglobin 22.8 pg (27.0-31.0); Mean Corpuscular Volume 75.5 fL (78.0-98.0); Mean Platelet Volume 5.8 fL (7.4-10.4); Platelet Count 349 thou/uL (130-400); Red Blood Cell (RBC) Count 3.27 mill/uL (4.20-5.40); White Blood Cell (WBC) Count 10.3 thou/uL (4.8-10.8)
[2021-06-07 05:35] LABS: Anion Gap 15 mmol/L (10-20); BUN (Urea Nitrogen) 35 mg/dL (9.8-20.1); Calc. Creatinine Clearance 33 mL/min (70-130); Calcium 8.5 mg/dL (7.8-10.44); Carbon Dioxide 30 mmol/L (23-31); Chloride 94 mmol/L (98-107); Glucose 97 mg/dL (83-110); Magnesium 1.6 mg/dL (1.6-2.6); Phosphorus 2.4 mg/dL (2.3-4.7); Potassium 4.1 mmol/L (3.5-5.1); Sodium 135 mmol/L (136-145)
[2021-06-07] MEDS: traMADol HCl 50 MG TAB PO SCH ×3 (05:36→21:15)
[2021-06-07] MEDS ORDERED: Magnesium Sulfate In Water 4 GM in Premix Bag 1 BAG IVPB SCH (06:30)
[2021-06-07] MEDS: Senokot S 8.6-50 MG TAB PO SCH ×2 (08:16→21:16)
[2021-06-07] MEDS: Albumin 25% 25 GM/100 ML BOT IVPB SCH ×3 (08:18→21:16)
[2021-06-07] MEDS: Metoprolol Tartrate 25 MG TAB PO SCH ×2 (08:18→21:15)
[2021-06-07] MEDS: Ferrous Sulfate 325 MG TAB PO SCH ×2 (08:18→17:03)
[2021-06-07] MEDS: Amlodipine 10 MG TAB PO SCH (08:18)
[2021-06-07] MEDS: Furosemide 20 MG TAB PO SCH (08:19)
[2021-06-07] MEDS: Ascorbic Acid 500 mg Chewable Tablet PO SCH ×2 (08:19→17:03)
[2021-06-07] MEDS: Heparin 5,000 UNITS/ML VIAL SC SCH ×3 (08:19→21:16)
[2021-06-07] MEDS: Atorvastatin Calcium 40 MG TAB PO SCH (08:19)
[2021-06-07] MEDS ORDERED: Amlodipine 5 MG TAB PO SCH (09:00)
[2021-06-07] MEDS ORDERED: Sodium Chloride 0.9% 1,000 ML IV SCH (11:00)
[2021-06-07] MEDS: Latanoprost 0.005% Ophth Soln 2.5 ml Bottle L EYE SCH (21:15)
[2021-06-08] MEDS: Acetaminophen 500 MG TAB PO SCH ×4 (01:05→17:11)
[2021-06-08] MEDS: Acetaminophen/Codeine 30-300mg Tablet PO SCH ×4 (04:55→22:41)
[2021-06-08] MEDS: traMADol HCl 50 MG TAB PO SCH ×3 (05:08→22:41)
[2021-06-08 05:35] LABS: #Basophils 0.1 thou/uL (0.0-0.2); #Eosinphils 1.3 thou/uL (0.0-0.7); #Lymphocytes 1.9 thou/uL (1.20-3.40); #Monocytes 1.5 thou/uL (0.11-0.59); %Basophils 0.7 % (0.0-1.0); %Eosinophils 9.8 % (0.0-10.0); %Lymphocytes 14.6 % (21.0-51.0); %Monocytes 11.9 % (0.0-10.0); %Neutrophils 62.9 % (42.0-75.0); Hemoglobin 6.2 g/dL (12.0-16.0); Mean Corpuscular HGB CONC 30.9 g/dL (32.0-36.0); Mean Corpuscular Hemoglobin 23.5 pg (27.0-31.0); Mean Corpuscular Volume 75.9 fL (78.0-98.0); Mean Platelet Volume 6.3 fL (7.4-10.4); Platelet Count 301 thou/uL (130-400); Red Blood Cell (RBC) Count 2.62 mill/uL (4.20-5.40); White Blood Cell (WBC) Count 12.7 thou/uL (4.8-10.8)
[2021-06-08 05:58] LABS: Anion Gap 15 mmol/L (10-20); BUN (Urea Nitrogen) 33 mg/dL (9.8-20.1); Calc. Creatinine Clearance 32 mL/min (70-130); Calcium 8.6 mg/dL (7.8-10.44); Carbon Dioxide 29 mmol/L (23-31); Chloride 96 mmol/L (98-107); Glucose 107 mg/dL (83-110); Phosphorus 1.5 mg/dL (2.3-4.7); Sodium 136 mmol/L (136-145)
[2021-06-08] MEDS: Amlodipine 10 MG TAB PO SCH (08:40)
[2021-06-08] MEDS: Metoprolol Tartrate 25 MG TAB PO SCH ×2 (08:42→20:53)
[2021-06-08] MEDS ORDERED: hydrALAZINE 20 MG/ML VIAL SLOW IVP PRN (08:55)
[2021-06-08] MEDS ORDERED: Sodium Phosphate 30 MMOL in Sodium Chloride 0.9% 250 ML 250 ML IVPB SCH (09:00)
[2021-06-08] MEDS ORDERED: Meropenem 1 GM in Sodium Chloride 0.9% 100 ML IVPB SCH ×3 (09:00→23:00)
[2021-06-08] MEDS: Ascorbic Acid 500 mg Chewable Tablet PO SCH ×2 (09:17→17:11)
[2021-06-08] MEDS: Ferrous Sulfate 325 MG TAB PO SCH ×2 (09:17→17:11)
[2021-06-08] MEDS: Pantoprazole 40 MG VIAL IVP SCH ×2 (09:17→20:53)
[2021-06-08] MEDS: Atorvastatin Calcium 40 MG TAB PO SCH (09:17)
[2021-06-08] MEDS: Senokot S 8.6-50 MG TAB PO SCH ×2 (09:18→20:54)
[2021-06-08 12:49] VITALS: BMI 23.9
[2021-06-08] MEDS ORDERED: Lidocaine 1% PF 5 ML VIAL ONE (18:24)
[2021-06-08] MEDS ORDERED: PROPOFOL 200 MG/20 ML VIAL ONE (18:24)
[2021-06-08] MEDS: Latanoprost 0.005% Ophth Soln 2.5 ml Bottle L EYE SCH (20:53)
[2021-06-08] MEDS: Meropenem 500 MG in Sodium Chloride 0.9% 100 ML IVPB SCH (20:53)
[2021-06-09] MEDS: Acetaminophen 500 MG TAB PO SCH ×5 (00:03→23:06)
[2021-06-09] MEDS: Acetaminophen/Codeine 30-300mg Tablet PO SCH ×4 (05:01→23:06)
[2021-06-09 05:38] LABS: Hemoglobin 9.2 g/dL (12.0-16.0); Mean Corpuscular HGB CONC 32.7 g/dL (32.0-36.0); Mean Corpuscular Hemoglobin 26.1 pg (27.0-31.0); Mean Corpuscular Volume 80.1 fL (78.0-98.0); Mean Platelet Volume 11.3 fL (7.4-10.4); Platelet Count 274 thou/uL (130-400); RBC Distribution Width 28.3 % (11.5-14.5); Red Blood Cell (RBC) Count 3.52 mill/uL (4.20-5.40); White Blood Cell (WBC) Count 12.6 thou/uL (4.8-10.8)
[2021-06-09] MEDS: traMADol HCl 50 MG TAB PO SCH ×3 (05:48→21:06)
[2021-06-09 05:54] LABS: Anion Gap 11 mmol/L (10-20); BUN (Urea Nitrogen) 27 mg/dL (9.8-20.1); Calc. Creatinine Clearance 40 mL/min (70-130); Calcium 8.5 mg/dL (7.8-10.44); Carbon Dioxide 29 mmol/L (23-31); Chloride 101 mmol/L (98-107); Glucose 95 mg/dL (83-110); Magnesium 1.7 mg/dL (1.6-2.6); Phosphorus 2.9 mg/dL (2.3-4.7); Sodium 137 mmol/L (136-145)
[2021-06-09 06:05] LABS: #Basophils 0.1 thou/uL (0.0-0.2); #Eosinphils 1.2 thou/uL (0.0-0.7); #Lymphocytes 1.6 thou/uL (1.20-3.40); #Monocytes 1.8 thou/uL (0.11-0.59); #Neutrophils 7.9 thou/uL (1.40-6.50); %Eosinophils 9.6 % (0.0-10.0); %Lymphocytes 12.5 % (21.0-51.0); %Monocytes 14.3 % (0.0-10.0); %Neutrophils 62.6 % (42.0-75.0); Anisocytosis SLIGHT = 6-15 cells (100X) (0-5/hpf); Hypochromia SLIGHT = 6-15 cells (100X) (0-5/hpf); MDiff Complete? YES; Polychromasia SLIGHT = 2-3 cells (100X) (0-2/hpf)
[2021-06-09] MEDS ORDERED: Magnesium 2 GM/50 ML(in water) 2 GM in Premix Bag 1 BAG IVPB SCH (08:00)
[2021-06-09] MEDS: Amlodipine 10 MG TAB PO SCH (08:34)
[2021-06-09] MEDS: Pantoprazole 40 MG VIAL IVP SCH ×2 (08:34→21:06)
[2021-06-09] MEDS: Ascorbic Acid 500 mg Chewable Tablet PO SCH ×2 (08:34→17:48)
[2021-06-09] MEDS: Atorvastatin Calcium 40 MG TAB PO SCH (08:34)
[2021-06-09] MEDS: Meropenem 500 MG in Sodium Chloride 0.9% 100 ML IVPB SCH (08:34)
[2021-06-09] MEDS: Losartan 25 MG TAB PO SCH (08:35)
[2021-06-09] MEDS: Ferrous Sulfate 325 MG TAB PO SCH ×2 (08:35→17:48)
[2021-06-09] MEDS: Metoprolol Tartrate 25 MG TAB PO SCH ×2 (08:35→21:06)
[2021-06-09] MEDS: Senokot S 8.6-50 MG TAB PO SCH ×2 (08:43→21:07)
[2021-06-09] MEDS ORDERED: Sodium Phosphate 15 MMOL in Sodium Chloride 0.9% 250 ML 250 ML IVPB SCH (09:00)
[2021-06-09] MEDS ORDERED: Saccharomyces boulardii 250 MG CAP PO SCH (10:00)
[2021-06-09] MEDS: Latanoprost 0.005% Ophth Soln 2.5 ml Bottle L EYE SCH (21:06)
[2021-06-10] MEDS: Acetaminophen/Codeine 30-300mg Tablet PO SCH ×2 (04:16→19:29)
[2021-06-10] MEDS: traMADol HCl 50 MG TAB PO SCH ×3 (05:55→21:12)
[2021-06-10] MEDS: Acetaminophen 500 MG TAB PO SCH (06:01)
[2021-06-10 06:28] LABS: Anion Gap 11 mmol/L (10-20); BUN (Urea Nitrogen) 23 mg/dL (9.8-20.1); Calc. Creatinine Clearance 45 mL/min (70-130); Calcium 8.6 mg/dL (7.8-10.44); Carbon Dioxide 25 mmol/L (23-31); Chloride 105 mmol/L (98-107); Glucose 93 mg/dL (83-110); Magnesium 1.9 mg/dL (1.6-2.6); Potassium 4.1 mmol/L (3.5-5.1); Sodium 137 mmol/L (136-145)
[2021-06-10 06:39] LABS: Anisocytosis MODERATE=16-30 cells (100X) (0-5/hpf); Band 4 % (5-11); Eosinophils 10 % (0-10); Hemoglobin 8.6 g/dL (12.0-16.0); Hypochromia SLIGHT = 6-15 cells (100X) (0-5/hpf); Lymphocytes 21 % (21-51); MDiff Complete? YES; Mean Corpuscular HGB CONC 31.8 g/dL (32.0-36.0); Mean Corpuscular Volume 81.7 fL (78.0-98.0); Mean Platelet Volume 5.9 fL (7.4-10.4); Microcytosis SLIGHT = 6-15 cells (100X) (0-5/hpf); Monocytes 8 % (0-10); Neutrophil 57 % (42-75); Nucleated RBC 1 % (0); Platelet Count 297 thou/uL (130-400); Polychromasia SLIGHT = 2-3 cells (100X) (0-2/hpf); RBC Distribution Width 29.2 % (11.5-14.5); Red Blood Cell (RBC) Count 3.32 mill/uL (4.20-5.40); Target Cells SLIGHT = 2-5 cells (100X) (0-1/hpf); White Blood Cell (WBC) Count 9.3 thou/uL (4.8-10.8)
[2021-06-10] MEDS ORDERED: PHOS-NAK 1 PKT PACK PO SCH (08:45)
[2021-06-10] MEDS: Ascorbic Acid 500 mg Chewable Tablet PO SCH ×2 (08:47→16:57)
[2021-06-10] MEDS: Ferrous Sulfate 325 MG TAB PO SCH ×2 (08:48→16:57)
[2021-06-10] MEDS: Amlodipine 10 MG TAB PO SCH (08:48)
[2021-06-10] MEDS: Atorvastatin Calcium 40 MG TAB PO SCH (08:49)
[2021-06-10] MEDS: Metoprolol Tartrate 25 MG TAB PO SCH ×2 (08:49→21:12)
[2021-06-10] MEDS: Senokot S 8.6-50 MG TAB PO SCH ×2 (08:50→21:12)
[2021-06-10] MEDS: Saccharomyces boulardii 250 MG CAP PO SCH (08:50)
[2021-06-10] MEDS: Pantoprazole 40 MG VIAL IVP SCH ×2 (08:50→21:12)
[2021-06-10] MEDS: Losartan 25 MG TAB PO SCH (08:51)
[2021-06-10] MEDS ORDERED: Acetaminophen/Codeine 30-300mg Tablet PO PRN (11:21)
[2021-06-10] MEDS ORDERED: Acetaminophen 325 MG TAB PO SCH (12:15)
[2021-06-10] MEDS: Acetaminophen 325 MG TAB PO SCH ×2 (16:58→23:04)
[2021-06-10] MEDS: Latanoprost 0.005% Ophth Soln 2.5 ml Bottle L EYE SCH (21:12)
[2021-06-10 23:05] LABS: SARS-CoV-2 PCR by NAA Not Detected (NotDetected)
[2021-06-11] MEDS: Acetaminophen 325 MG TAB PO SCH ×3 (05:15→17:34)
[2021-06-11] MEDS: traMADol HCl 50 MG TAB PO SCH ×3 (05:15→22:30)
[2021-06-11 07:31] LABS: ALT (SGPT) 41 U/L (8-55); AST (SGOT) 58 U/L (5-34); Albumin 3.2 g/dL (3.4-4.8); Alkaline Phosphatase 103 U/L (40-110); Anion Gap 14 mmol/L (10-20); BUN (Urea Nitrogen) 22 mg/dL (9.8-20.1); Bilirubin, Total 0.7 mg/dL (0.2-1.2); Calc. Creatinine Clearance 39 mL/min (70-130); Calcium 8.5 mg/dL (7.8-10.44); Carbon Dioxide 21 mmol/L (23-31); Chloride 105 mmol/L (98-107); Globulin 2.2 g/dL (2.4-3.5); Glucose 94 mg/dL (83-110); Magnesium 1.6 mg/dL (1.6-2.6); Potassium 4.4 mmol/L (3.5-5.1); Protein, Total 5.4 g/dL (5.8-8.1); Sodium 136 mmol/L (136-145)
[2021-06-11] MEDS ORDERED: Magnesium 2 GM/50 ML(in water) 2 GM in Premix Bag 1 BAG IVPB SCH (08:30)
[2021-06-11] MEDS: Saccharomyces boulardii 250 MG CAP PO SCH (09:18)
[2021-06-11] MEDS: Ferrous Sulfate 325 MG TAB PO SCH ×2 (09:19→17:33)
[2021-06-11] MEDS: Ascorbic Acid 500 mg Chewable Tablet PO SCH ×2 (09:19→17:33)
[2021-06-11] MEDS: Amlodipine 10 MG TAB PO SCH (09:20)
[2021-06-11] MEDS: Metoprolol Tartrate 25 MG TAB PO SCH ×2 (09:24→20:42)
[2021-06-11] MEDS: Atorvastatin Calcium 40 MG TAB PO SCH (09:24)
[2021-06-11] MEDS: Losartan 25 MG TAB PO SCH (09:24)
[2021-06-11] MEDS: Pantoprazole 40 MG VIAL IVP SCH ×2 (09:25→20:42)
[2021-06-11] MEDS: Senokot S 8.6-50 MG TAB PO SCH ×2 (09:37→20:42)
[2021-06-11 09:52] LABS: #Basophils 0.1 thou/uL (0.0-0.2); #Eosinphils 0.5 thou/uL (0.0-0.7); #Lymphocytes 1.3 thou/uL (1.20-3.40); #Monocytes 1.1 thou/uL (0.11-0.59); #Neutrophils 5.6 thou/uL (1.40-6.50); %Basophils 0.8 % (0.0-1.0); %Monocytes 12.9 % (0.0-10.0); %Neutrophils 65.3 % (42.0-75.0); Hemoglobin 8.7 g/dL (12.0-16.0); Mean Corpuscular HGB CONC 30.4 g/dL (32.0-36.0); Mean Corpuscular Hemoglobin 25.8 pg (27.0-31.0); Platelet Count 328 thou/uL (130-400); Red Blood Cell (RBC) Count 3.37 mill/uL (4.20-5.40); White Blood Cell (WBC) Count 8.6 thou/uL (4.8-10.8)
[2021-06-11 09:57] LABS: Anisocytosis MODERATE=16-30 cells (100X) (0-5/hpf); Hypochromia SLIGHT = 6-15 cells (100X) (0-5/hpf); MDiff Complete? YES; Platelet Morphology Comment Appears Adequate; Polychromasia MODERATE = 3-4 cells (100X) (0-2/hpf); Schistocytes SLIGHT = 2-5 cells (100X) (0-1/hpf); Target Cells SLIGHT = 2-5 cells (100X) (0-1/hpf); Tear Drops SLIGHT = 2-5 cells (100X) (0-1/hpf)
[2021-06-11] MEDS: Latanoprost 0.005% Ophth Soln 2.5 ml Bottle L EYE SCH (20:42)
[2021-06-12] MEDS: Acetaminophen 325 MG TAB PO SCH ×5 (00:11→23:00)
[2021-06-12] MEDS: traMADol HCl 50 MG TAB PO SCH ×3 (05:02→23:00)
[2021-06-12] MEDS: Ascorbic Acid 500 mg Chewable Tablet PO SCH ×2 (08:46→16:09)
[2021-06-12] MEDS: Amlodipine 10 MG TAB PO SCH (08:46)
[2021-06-12] MEDS: Losartan 25 MG TAB PO SCH (08:46)
[2021-06-12] MEDS: Atorvastatin Calcium 40 MG TAB PO SCH (08:46)
[2021-06-12] MEDS: Senokot S 8.6-50 MG TAB PO SCH ×2 (08:46→20:01)
[2021-06-12] MEDS: Ferrous Sulfate 325 MG TAB PO SCH ×2 (08:46→16:10)
[2021-06-12] MEDS: Saccharomyces boulardii 250 MG CAP PO SCH (08:47)
[2021-06-12] MEDS: Metoprolol Tartrate 25 MG TAB PO SCH ×2 (08:47→20:01)
[2021-06-12] MEDS: Pantoprazole 40 MG VIAL IVP SCH ×2 (08:47→20:02)
[2021-06-12] MEDS: Latanoprost 0.005% Ophth Soln 2.5 ml Bottle L EYE SCH (20:01)
[2021-06-13] MEDS: traMADol HCl 50 MG TAB PO SCH (06:12)
[2021-06-13] MEDS: Acetaminophen 325 MG TAB PO SCH (06:12)
[2021-06-13] MEDS: Senokot S 8.6-50 MG TAB PO SCH (07:39)
[2021-06-13] MEDS: Ascorbic Acid 500 mg Chewable Tablet PO SCH (07:39)
[2021-06-13] MEDS: Amlodipine 10 MG TAB PO SCH (07:39)
[2021-06-13] MEDS: Atorvastatin Calcium 40 MG TAB PO SCH (07:39)
[2021-06-13] MEDS: Losartan 25 MG TAB PO SCH (07:39)
[2021-06-13] MEDS: Saccharomyces boulardii 250 MG CAP PO SCH (07:39)
[2021-06-13] MEDS: Ferrous Sulfate 325 MG TAB PO SCH (07:39)
[2021-06-13] MEDS: Metoprolol Tartrate 25 MG TAB PO SCH (07:40)
[2021-06-13] MEDS: Pantoprazole 40 MG VIAL IVP SCH (07:40)
[2021-06-13 08:14] VITALS: BP 151/91; TEMP 97.9
== END 2021-06-13 10:15 | DRG 329 ==
LOC: ERS 14:39 → 2SW 18:27 → OBSVTOIN 05-29 13:10 → PACU-TCU 06-01 01:05 → SURG B 06-01 18:21 → 2NO 06-03 14:10 → SURG A 06-05 16:36
PROVIDERS: ADMIT Internal Medicine; ATTEND Family Medicine
PROC: 30233N1 Transfusion of Nonautologous Red Blood Cells into Peripheral Vein, Percutaneous Approach (ICD-10-PCS; principal; 2021-05-27)
PROC: 0DB98ZX Excision of Duodenum, Via Natural or Artificial Opening Endoscopic, Diagnostic (ICD-10-PCS; 2021-05-29)
PROC: 0DBK8ZZ Excision of Ascending Colon, Via Natural or Artificial Opening Endoscopic (ICD-10-PCS; 2021-05-29)
PROC: 0W3P8ZZ Control Bleeding in Gastrointestinal Tract, Via Natural or Artificial Opening Endoscopic (ICD-10-PCS; 2021-05-29)
PROC: 0D1B0ZK Bypass Ileum to Ascending Colon, Open Approach (ICD-10-PCS; 2021-05-31)
PROC: 0DBF0ZZ Excision of Right Large Intestine, Open Approach (ICD-10-PCS; 2021-05-31)
PROC: 0DJ08ZZ Inspection of Upper Intestinal Tract, Via Natural or Artificial Opening Endoscopic (ICD-10-PCS; 2021-06-08)
DX: K25.4 Chronic or unspecified gastric ulcer with hemorrhage (principal); K65.9 Peritonitis, unspecified; I21.A1 Myocardial infarction type 2; K55.059 Acute (reversible) ischemia of intestine, part and extent unspecified; J96.01 Acute respiratory failure with hypoxia; K44.0 Diaphragmatic hernia with obstruction, without gangrene; N17.9 Acute kidney failure, unspecified; D62 Acute posthemorrhagic anemia; I13.0 Hypertensive heart and chronic kidney disease with heart failure and stage 1 through stage 4 chronic kidney disease, or unspecified chronic kidney disease; I50.32 Chronic diastolic (congestive) heart failure; K22.10 Ulcer of esophagus without bleeding; E87.2 Acidosis; E87.1 Hypo-osmolality and hyponatremia; K91.71 Accidental puncture and laceration of a digestive system organ or structure during a digestive system procedure; Z20.822 Contact with and (suspected) exposure to COVID-19; Z66 Do not resuscitate; E78.5 Hyperlipidemia, unspecified; I44.7 Left bundle-branch block, unspecified; Z96.651 Presence of right artificial knee joint; D50.9 Iron deficiency anemia, unspecified; K63.5 Polyp of colon; K64.4 Residual hemorrhoidal skin tags; K64.8 Other hemorrhoids; K21.00 Gastro-esophageal reflux disease with esophagitis, without bleeding; K44.9 Diaphragmatic hernia without obstruction or gangrene; M19.90 Unspecified osteoarthritis, unspecified site; K66.8 Other specified disorders of peritoneum; Z88.0 Allergy status to penicillin; Z90.710 Acquired absence of both cervix and uterus; Z90.49 Acquired absence of other specified parts of digestive tract; Z90.09 Acquired absence of other part of head and neck; Z98.49 Cataract extraction status, unspecified eye; Z79.899 Other long term (current) drug therapy; D72.829 Elevated white blood cell count, unspecified; N18.30 Chronic kidney disease, stage 3 unspecified; D63.1 Anemia in chronic kidney disease; F32.A Depression, unspecified; Y65.8 Other specified misadventures during surgical and medical care; Y92.234 Operating room of hospital as the place of occurrence of the external cause; Y73.3 Surgical instruments, materials and gastroenterology and urology devices (including sutures) associated with adverse incidents
CPT/HCPCS: 36415; 36430; 36600; 71045; 71275; 74018; 74177; 80048; 80053; 80061; 82274; 82533; 82550; 82553; 82607; 82728; 82746; 82805; 83540; 83550; 83605; 83735; 83880; 84100; 84145; 84484; 85025; 85060; 85610; 85730; 86850; 86900; 86901; 88305; 88307; 93005; 93010; 93306; 94640; 96374; 96375; 96376; A4649; C1776; C9113; G0378; J0171; J0360; J0744; J1644; J1720; J1940; J2185; J2405; J2704; J2916; J3010; J3475; J3490; J7030; J7050; J7120; J7620; P9016; P9045; P9047; Q9967; S0020; U0003; U0005

== ENCOUNTER 2021-06-14 00:40 | Inpatient (IN) | payer OTHER, MEDICARE, BC ==
[2021-06-14] MEDS ORDERED: Ondansetron PF 4 MG/2 ML Vial ONE (02:20)
[2021-06-14] MEDS ORDERED: Morphine 4 MG/ML VIAL ONE (02:20)
[2021-06-14] MEDS ORDERED: Melatonin 3 MG TAB PO PRN (02:21)
[2021-06-14] MEDS ORDERED: Polyethylene Glycol 3350 17 GM Packet PO PRN (02:21)
[2021-06-14] MEDS ORDERED: traMADol HCl 50 MG TAB PO PRN ×2 (02:23→16:25)
[2021-06-14] MEDS ORDERED: Cyclobenzaprine 10 MG TAB PO PRN (02:23)
[2021-06-14] MEDS ORDERED: Promethazine HCl 25 MG/ML VIAL IM PRN (02:26)
[2021-06-14] MEDS ORDERED: Ondansetron PF 4 MG/2 ML Vial IVP PRN (02:26)
[2021-06-14] MEDS ORDERED: hydrALAZINE 20 MG/ML VIAL SLOW IVP PRN (02:26)
[2021-06-14 02:28] LABS: Mean Corpuscular HGB CONC 31.8 g/dL (32.0-36.0); Mean Corpuscular Volume 84.8 fL (78.0-98.0); Mean Platelet Volume 11.1 fL (7.4-10.4); Platelet Count 367 thou/uL (130-400); RBC Distribution Width 29.5 % (11.5-14.5); Red Blood Cell (RBC) Count 3.35 mill/uL (4.20-5.40); White Blood Cell (WBC) Count 10.4 thou/uL (4.8-10.8)
[2021-06-14 02:33] LABS: PTT 30.4 sec (22.9-36.1); Prothrombin Time 12.9 sec (12.0-14.7)
[2021-06-14] MEDS ORDERED: Morphine 4 MG/ML VIAL SLOW IVP PRN (02:41)
[2021-06-14 03:05] LABS: #Basophils 0.1 thou/uL (0.0-0.2); #Eosinphils 0.6 thou/uL (0.0-0.7); #Lymphocytes 1.3 thou/uL (1.20-3.40); #Neutrophils 7.4 thou/uL (1.40-6.50); %Basophils 0.7 % (0.0-1.0); %Lymphocytes 12.5 % (21.0-51.0); %Monocytes 9.7 % (0.0-10.0); %Neutrophils 71.1 % (42.0-75.0); Anisocytosis MODERATE=16-30 cells (100X) (0-5/hpf); Hypochromia SLIGHT = 6-15 cells (100X) (0-5/hpf); MDiff Complete? YES; Microcytosis SLIGHT = 6-15 cells (100X) (0-5/hpf)
[2021-06-14 03:40] LABS: Chloride 103 mmol/L (98-107); Potassium 5.2 mmol/L (3.5-5.1); Sodium 137 mmol/L (136-145)
[2021-06-14 03:41] LABS: Calcium 9.3 mg/dL (7.8-10.44); Glucose 108 mg/dL (83-110)
[2021-06-14 03:43] LABS: Anion Gap 15 mmol/L (10-20); Carbon Dioxide 24 mmol/L (23-31)
[2021-06-14 03:44] LABS: Phosphorus 3.7 mg/dL (2.3-4.7)
[2021-06-14 03:45] LABS: BUN (Urea Nitrogen) 24 mg/dL (9.8-20.1); Calc. Creatinine Clearance 0 mL/min (70-130)
[2021-06-14 03:46] LABS: Magnesium 1.6 mg/dL (1.6-2.6)
[2021-06-14] MEDS: Sodium Chloride 0.9% 1,000 ML IV SCH ×2 (04:06→16:54)
[2021-06-14] MEDS: Acetaminophen 325 MG TAB PO SCH ×3 (04:07→16:07)
[2021-06-14 04:47] VITALS: BMI 23.8
[2021-06-14 05:27] LABS: Bacteria/HPF None Seen HPF (None Seen); Bilirubin Negative (Negative); Blood, Urine Negative (Negative); Clarity Clear (Clear); Glucose, Urine (Dipstick) Normal (Negative); Ketone, Urine Negative (Negative); Leukocyte Negative Leu/uL (Negative); Nitrite Negative (Negative); Protein, Urine (Dipstick) Negative (Neg-Trace); RBC/HPF 0-3 HPF (0-3); Specific Gravity, Urine 1.011 (1.002-1.036); Squamous Epithelial 0-3 HPF (0-3); Urobilinogen Normal mg/dL (Less than 2); WBC/HPF 0-3 HPF (0-3)
[2021-06-14 05:45] LABS: Urine Culture Reflex No No
[2021-06-14 06:02] LABS: SARS-CoV-2 NAA Rapid Test Not Detected (NotDetected)
[2021-06-14] MEDS: traMADol HCl 50 MG TAB PO SCH ×2 (06:27→11:12)
[2021-06-14] MEDS: Ferrous Sulfate 325 MG TAB PO SCH ×2 (08:50→17:06)
[2021-06-14] MEDS: Ascorbic Acid 500 mg Chewable Tablet PO SCH ×2 (08:50→17:05)
[2021-06-14] MEDS: Multivitamin W/ Minerals 1 TAB PO SCH (08:50)
[2021-06-14] MEDS: Senokot S 8.6-50 MG TAB PO SCH (08:50)
[2021-06-14] MEDS: Polyethylene Glycol 3350 17 GM Packet PO SCH (08:50)
[2021-06-14] MEDS ORDERED: Metoprolol Tartrate 25 MG TAB PO SCH (09:00)
[2021-06-14] MEDS ORDERED: Amlodipine 10 MG TAB PO SCH (09:00)
[2021-06-14] MEDS ORDERED: Saccharomyces boulardii 250 MG CAP PO SCH (09:00)
[2021-06-14] MEDS ORDERED: Famotidine 20 MG TAB PO SCH (09:00)
[2021-06-14] MEDS ORDERED: Dexmedetomidine 200 MCG/2 ML VIAL ONE (14:54)
[2021-06-14] MEDS ORDERED: ePHEDrine 50 MG/ML VIAL ONE (15:10)
[2021-06-14] MEDS ORDERED: Fentanyl 100 MCG/2 ML VIAL ONE (15:13)
[2021-06-14] MEDS ORDERED: Ibuprofen 200 MG TAB PO PRN (16:42)
[2021-06-14] MEDS: Acetaminophen/Codeine 30-300mg Tablet PO SCH (17:05)
[2021-06-15] MEDS: Senokot S 8.6-50 MG TAB PO SCH ×3 (00:17→20:05)
[2021-06-15] MEDS: Atorvastatin Calcium 40 MG TAB PO SCH ×2 (00:17→20:05)
[2021-06-15] MEDS: Acetaminophen/Codeine 30-300mg Tablet PO SCH ×5 (00:17→23:50)
[2021-06-15] MEDS: Gabapentin 100 MG CAP PO SCH ×4 (00:17→20:05)
[2021-06-15] MEDS: Metoprolol Tartrate 25 MG TAB PO SCH ×3 (00:45→20:05)
[2021-06-15 05:42] LABS: Anion Gap 13 mmol/L (10-20); BUN (Urea Nitrogen) 15 mg/dL (9.8-20.1); Calc. Creatinine Clearance 43 mL/min (70-130); Calcium 8.8 mg/dL (7.8-10.44); Carbon Dioxide 23 mmol/L (23-31); Chloride 105 mmol/L (98-107); Glucose 83 mg/dL (83-110); Magnesium 1.4 mg/dL (1.6-2.6); Potassium 4.7 mmol/L (3.5-5.1); Sodium 136 mmol/L (136-145)
[2021-06-15 05:54] LABS: #Basophils 0.1 thou/uL (0.0-0.2); #Eosinphils 0.5 thou/uL (0.0-0.7); #Monocytes 0.8 thou/uL (0.11-0.59); #Neutrophils 6.1 thou/uL (1.40-6.50); %Basophils 0.7 % (0.0-1.0); %Eosinophils 6.4 % (0.0-10.0); %Lymphocytes 11.8 % (21.0-51.0); %Neutrophils 72.1 % (42.0-75.0); Hemoglobin 7.3 g/dL (12.0-16.0); Mean Corpuscular HGB CONC 30.7 g/dL (32.0-36.0); Mean Corpuscular Hemoglobin 26.8 pg (27.0-31.0); Mean Corpuscular Volume 87.2 fL (78.0-98.0); Mean Platelet Volume 9.8 fL (7.4-10.4); Platelet Count 301 thou/uL (130-400); RBC Distribution Width 28.1 % (11.5-14.5); Red Blood Cell (RBC) Count 2.71 mill/uL (4.20-5.40); White Blood Cell (WBC) Count 8.5 thou/uL (4.8-10.8)
[2021-06-15 05:55] LABS: Anisocytosis MODERATE=16-30 cells (100X) (0-5/hpf); MDiff Complete? YES; Stomatocytes SLIGHT = 2-5 cells (100X) (0-1/hpf)
[2021-06-15] MEDS: Ferrous Sulfate 325 MG TAB PO SCH ×2 (09:08→16:23)
[2021-06-15] MEDS: Multivitamin W/ Minerals 1 TAB PO SCH (09:09)
[2021-06-15] MEDS: Ascorbic Acid 500 mg Chewable Tablet PO SCH ×2 (09:09→16:23)
[2021-06-15] MEDS: Polyethylene Glycol 3350 17 GM Packet PO SCH (09:11)
[2021-06-16] MEDS: Acetaminophen/Codeine 30-300mg Tablet PO SCH ×2 (04:59→11:15)
[2021-06-16 05:48] LABS: Band 6 % (5-11); Eosinophils 2 % (0-10); Hemoglobin 8.4 g/dL (12.0-16.0); Hypochromia SLIGHT = 6-15 cells (100X) (0-5/hpf); Lymphocytes 4 % (21-51); MDiff Complete? YES; Mean Corpuscular HGB CONC 32.3 g/dL (32.0-36.0); Mean Corpuscular Hemoglobin 28.1 pg (27.0-31.0); Mean Corpuscular Volume 87.1 fL (78.0-98.0); Mean Platelet Volume 10.3 fL (7.4-10.4); Monocytes 8 % (0-10); Neutrophil 80 % (42-75); Platelet Count 289 thou/uL (130-400); Platelet Morphology Comment Appears Adequate; RBC Distribution Width 26.1 % (11.5-14.5); Red Blood Cell (RBC) Count 2.99 mill/uL (4.20-5.40); White Blood Cell (WBC) Count 8.9 thou/uL (4.8-10.8)
[2021-06-16 05:49] LABS: Anion Gap 11 mmol/L (10-20); BUN (Urea Nitrogen) 18 mg/dL (9.8-20.1); Calc. Creatinine Clearance 38 mL/min (70-130); Calcium 8.6 mg/dL (7.8-10.44); Carbon Dioxide 24 mmol/L (23-31); Chloride 105 mmol/L (98-107); Glucose 103 mg/dL (83-110); Phosphorus 3.8 mg/dL (2.3-4.7); Potassium 4.4 mmol/L (3.5-5.1); Sodium 136 mmol/L (136-145)
[2021-06-16] MEDS: Senokot S 8.6-50 MG TAB PO SCH (08:44)
[2021-06-16] MEDS: Polyethylene Glycol 3350 17 GM Packet PO SCH (08:44)
[2021-06-16] MEDS: Ferrous Sulfate 325 MG TAB PO SCH (08:45)
[2021-06-16] MEDS: Ascorbic Acid 500 mg Chewable Tablet PO SCH (08:45)
[2021-06-16] MEDS: Multivitamin W/ Minerals 1 TAB PO SCH (08:45)
[2021-06-16] MEDS: Metoprolol Tartrate 25 MG TAB PO SCH (08:46)
[2021-06-16] MEDS: Gabapentin 100 MG CAP PO SCH (08:46)
[2021-06-16 11:25] VITALS: BP 156/63; TEMP 98.1
== END 2021-06-16 11:57 | DRG 563 ==
LOC: ERS 00:40 → SURG A 02:09
PROVIDERS: ADMIT Surgery; ATTEND Surgery
PROC: 0QSGXZZ Reposition Right Tibia, External Approach (ICD-10-PCS; principal; 2021-06-14)
PROC: 0QSJXZZ Reposition Right Fibula, External Approach (ICD-10-PCS; 2021-06-14)
DX: S82.201A Unspecified fracture of shaft of right tibia, initial encounter for closed fracture (principal); M97.11XA Periprosthetic fracture around internal prosthetic right knee joint, initial encounter; N17.9 Acute kidney failure, unspecified; S82.831A Other fracture of upper and lower end of right fibula, initial encounter for closed fracture; Z20.822 Contact with and (suspected) exposure to COVID-19; S82.891A Other fracture of right lower leg, initial encounter for closed fracture; E78.5 Hyperlipidemia, unspecified; I10 Essential (primary) hypertension; I44.7 Left bundle-branch block, unspecified; W01.0XXA Fall on same level from slipping, tripping and stumbling without subsequent striking against object, initial encounter; M19.90 Unspecified osteoarthritis, unspecified site; Z96.651 Presence of right artificial knee joint; Z90.49 Acquired absence of other specified parts of digestive tract; Z90.710 Acquired absence of both cervix and uterus; Z88.0 Allergy status to penicillin
CPT/HCPCS: 36415; 36430; 76000; 80048; 81001; 83735; 84100; 85025; 85610; 85730; 86850; 86900; 86901; 93005; 93010; 96374; 96375; G0390; J2270; J2405; J3010; J3490; J7050; P9016; P9045; U0002

== ENCOUNTER 2021-06-20 21:34 | Inpatient (IN) | payer MEDICARE, BC ==
[2021-06-20 22:15] LABS: #Basophils 0.1 thou/uL (0.0-0.2); #Eosinphils 0.8 thou/uL (0.0-0.7); #Lymphocytes 1.3 thou/uL (1.20-3.40); #Monocytes 1.1 thou/uL (0.11-0.59); #Neutrophils 6.7 thou/uL (1.40-6.50); %Basophils 0.7 % (0.0-1.0); %Eosinophils 7.6 % (0.0-10.0); %Monocytes 10.7 % (0.0-10.0); Mean Corpuscular HGB CONC 31.5 g/dL (32.0-36.0); Mean Corpuscular Hemoglobin 27.6 pg (27.0-31.0); Mean Corpuscular Volume 87.8 fL (78.0-98.0); Mean Platelet Volume 8.9 fL (7.4-10.4); Platelet Count 396 thou/uL (130-400); RBC Distribution Width 24.1 % (11.5-14.5); Red Blood Cell (RBC) Count 2.88 mill/uL (4.20-5.40); White Blood Cell (WBC) Count 9.8 thou/uL (4.8-10.8)
[2021-06-20] MEDS ORDERED: Albuterol Sulfate 2.5 mg/3 ml Neb ONE (22:18)
[2021-06-20 22:20] LABS: ALT (SGPT) 21 U/L (8-55); AST (SGOT) 34 U/L (5-34); Albumin 3.1 g/dL (3.4-4.8); Alkaline Phosphatase 89 U/L (40-110); Anion Gap 18 mmol/L (10-20); BUN (Urea Nitrogen) 57 mg/dL (9.8-20.1); Bilirubin, Total 0.9 mg/dL (0.2-1.2); Calc. Creatinine Clearance 0 mL/min (70-130); Calcium 8.2 mg/dL (7.8-10.44); Carbon Dioxide 21 mmol/L (23-31); Chloride 94 mmol/L (98-107); Globulin 2.6 g/dL (2.4-3.5); Glucose 115 mg/dL (83-110); Lipase 16 U/L (8-78); Magnesium 1.4 mg/dL (1.6-2.6); Potassium 4.7 mmol/L (3.5-5.1); Protein, Total 5.7 g/dL (5.8-8.1); Sodium 128 mmol/L (136-145)
[2021-06-20] MEDS ORDERED: cefTRIAXone\\ROCEPHIN 1 GM VIAL ONE (22:20)
[2021-06-20] MEDS ORDERED: methylPREDNISolone Sod Succ/PF 125 MG/2 ML VIAL ONE (22:20)
[2021-06-20 22:41] LABS: CKMB 5.3 ng/mL (0-6.6)
[2021-06-20 23:08] LABS: SARS-CoV-2 NAA Rapid Test Not Detected (NotDetected)
[2021-06-20] MEDS ORDERED: Furosemide 40 MG/4 ML VIAL ONE (23:14)
[2021-06-20] MEDS ORDERED: Magnesium 2 GM/50 ML BAG (IN WATER) ONE (23:15)
[2021-06-21] MEDS ORDERED: Ondansetron PF 4 MG/2 ML Vial IVP PRN (00:11)
[2021-06-21 01:52] LABS: Troponin I 0.135 ng/mL (< 0.028)
[2021-06-21 04:23] LABS: #Basophils 0.1 thou/uL (0.0-0.2); #Eosinphils 0.1 thou/uL (0.0-0.7); #Lymphocytes 0.4 thou/uL (1.20-3.40); #Monocytes 0.1 thou/uL (0.11-0.59); #Neutrophils 9.3 thou/uL (1.40-6.50); %Basophils 0.9 % (0.0-1.0); %Eosinophils 1.5 % (0.0-10.0); %Lymphocytes 3.5 % (21.0-51.0); %Monocytes 0.7 % (0.0-10.0); %Neutrophils 93.4 % (42.0-75.0); Hemoglobin 8.1 g/dL (12.0-16.0); Mean Corpuscular HGB CONC 31.7 g/dL (32.0-36.0); Mean Corpuscular Hemoglobin 28.2 pg (27.0-31.0); Mean Corpuscular Volume 89.1 fL (78.0-98.0); Mean Platelet Volume 9.3 fL (7.4-10.4); Platelet Count 380 thou/uL (130-400); RBC Distribution Width 25.6 % (11.5-14.5); Red Blood Cell (RBC) Count 2.88 mill/uL (4.20-5.40)
[2021-06-21 04:48] LABS: Anion Gap 21 mmol/L (10-20); BUN (Urea Nitrogen) 61 mg/dL (9.8-20.1); Calc. Creatinine Clearance 18 mL/min (70-130); Calcium 7.8 mg/dL (7.8-10.44); Carbon Dioxide 16 mmol/L (23-31); Chloride 94 mmol/L (98-107); Glucose 154 mg/dL (83-110); Potassium 4.6 mmol/L (3.5-5.1); Sodium 126 mmol/L (136-145)
[2021-06-21 05:06] LABS: Troponin I 0.124 ng/mL (< 0.028)
[2021-06-21] MEDS ORDERED: Furosemide 20 MG/2 ML VIAL SLOW IVP SCH (06:00)
[2021-06-21] MEDS ORDERED: Polyethylene Glycol 3350 17 GM Packet PO PRN (06:19)
[2021-06-21] MEDS ORDERED: Amlodipine 10 MG TAB PO SCH (09:00)
[2021-06-21] MEDS: Ferrous Sulfate 325 MG TAB PO SCH ×2 (09:09→18:25)
[2021-06-21 09:58] LABS: Lactic Acid 2.2 mmol/L (0.5-2.2)
[2021-06-21 10:40] LABS: Anion Gap 23 mmol/L (10-20); BUN (Urea Nitrogen) 65 mg/dL (9.8-20.1); Calc. Creatinine Clearance 17 mL/min (70-130); Calcium 8.5 mg/dL (7.8-10.44); Carbon Dioxide 14 mmol/L (23-31); Chloride 94 mmol/L (98-107); Glucose 170 mg/dL (83-110); Potassium 4.8 mmol/L (3.5-5.1); Sodium 126 mmol/L (136-145)
[2021-06-21] MEDS: Metoprolol Tartrate 25 MG TAB PO SCH ×2 (10:50→20:41)
[2021-06-21] MEDS: Saccharomyces boulardii 250 MG CAP PO SCH (10:53)
[2021-06-21] MEDS: Aspirin 81 mg Enteric Coated Tablet PO SCH (10:56)
[2021-06-21] MEDS ORDERED: Sodium Bicarbonate 150 MEQ in Dextrose 5% in Water 1,000 ML IV SCH ×5 (11:30→23:30)
[2021-06-21 16:54] LABS: Anion Gap 17 mmol/L (10-20); BUN (Urea Nitrogen) 69 mg/dL (9.8-20.1); Calc. Creatinine Clearance 16 mL/min (70-130); Calcium 8.1 mg/dL (7.8-10.44); Carbon Dioxide 21 mmol/L (23-31); Chloride 94 mmol/L (98-107); Glucose 151 mg/dL (83-110); Potassium 5.5 mmol/L (3.5-5.1); Sodium 126 mmol/L (136-145)
[2021-06-21] MEDS: methylPREDNISolone Sod Succ 40 MG VIAL IVP SCH (19:20)
[2021-06-21] MEDS: Albumin 25% 25 GM/100 ML BOT IVPB SCH (19:22)
[2021-06-21] MEDS: guaiFENesin ER 600 MG TAB PO SCH (20:40)
[2021-06-21] MEDS: Doxycycline 100 MG CAP PO SCH (20:40)
[2021-06-21] MEDS: Latanoprost 0.005% Ophth Soln 2.5 ml Bottle L EYE SCH (20:41)
[2021-06-21 20:59] LABS: Anion Gap 18 mmol/L (10-20); BUN (Urea Nitrogen) 72 mg/dL (9.8-20.1); Calc. Creatinine Clearance 15 mL/min (70-130); Calcium 8.1 mg/dL (7.8-10.44); Carbon Dioxide 21 mmol/L (23-31); Chloride 93 mmol/L (98-107); Glucose 156 mg/dL (83-110); Potassium 4.9 mmol/L (3.5-5.1); Sodium 127 mmol/L (136-145)
[2021-06-21] MEDS ORDERED: Senokot S 8.6-50 MG TAB PO SCH (21:00)
[2021-06-22] MEDS: methylPREDNISolone Sod Succ 40 MG VIAL IVP SCH ×3 (01:19→17:31)
[2021-06-22] MEDS: Albumin 25% 25 GM/100 ML BOT IVPB SCH ×4 (01:20→17:31)
[2021-06-22 03:54] LABS: Bacteria/HPF None Seen HPF (None Seen); Bilirubin Negative (Negative); Blood, Urine Negative (Negative); Clarity Clear (Clear); Glucose, Urine (Dipstick) Normal (Negative); Ketone, Urine Negative (Negative); Leukocyte Negative Leu/uL (Negative); Nitrite Negative (Negative); Protein, Urine (Dipstick) Negative (Neg-Trace); RBC/HPF 0-3 HPF (0-3); Specific Gravity, Urine 1.017 (1.002-1.036); Squamous Epithelial None Seen HPF (0-3); Urobilinogen Normal mg/dL (Less than 2); WBC/HPF 0-3 HPF (0-3)
[2021-06-22 04:02] LABS: Urine Culture Reflex No No
[2021-06-22 05:07] LABS: Hemoglobin 6.6 g/dL (12.0-16.0)
[2021-06-22 05:08] LABS: #Lymphocytes 0.5 thou/uL (1.20-3.40); #Monocytes 0.5 thou/uL (0.11-0.59); %Eosinophils 0.1 % (0.0-10.0); %Lymphocytes 3.5 % (21.0-51.0); %Monocytes 3.7 % (0.0-10.0); %Neutrophils 92.7 % (42.0-75.0); Band 24 % (5-11); Hypochromia SLIGHT = 6-15 cells (100X) (0-5/hpf); Lymphocytes 4 % (21-51); MDiff Complete? YES; Mean Corpuscular HGB CONC 32.1 g/dL (32.0-36.0); Mean Corpuscular Hemoglobin 27.7 pg (27.0-31.0); Mean Corpuscular Volume 86.3 fL (78.0-98.0); Mean Platelet Volume 8.8 fL (7.4-10.4); Monocytes 3 % (0-10); Neutrophil 69 % (42-75); Platelet Count 369 thou/uL (130-400); Platelet Morphology Comment Appears Adequate; RBC Distribution Width 24.2 % (11.5-14.5)
[2021-06-22 05:09] LABS: Anion Gap 20 mmol/L (10-20); BUN (Urea Nitrogen) 77 mg/dL (9.8-20.1); Calc. Creatinine Clearance 14 mL/min (70-130); Calcium 8.2 mg/dL (7.8-10.44); Carbon Dioxide 23 mmol/L (23-31); Chloride 89 mmol/L (98-107); Glucose 149 mg/dL (83-110); Iron 13 ug/dL (50-170); Iron Binding Capacity, Total 194 mcg/dL (265-497); Magnesium 1.9 mg/dL (1.6-2.6); Potassium 4.9 mmol/L (3.5-5.1); Sodium 127 mmol/L (136-145)
[2021-06-22] MEDS ORDERED: Magnesium 2 GM/50 ML(in water) 2 GM in Premix Bag 1 BAG IVPB SCH (08:45)
[2021-06-22] MEDS: Aspirin 81 mg Enteric Coated Tablet PO SCH (09:01)
[2021-06-22] MEDS: Metoprolol Tartrate 25 MG TAB PO SCH ×2 (09:02→20:31)
[2021-06-22] MEDS: Cyanocobalamin (Vitamin B-12) 1,000 MCG TAB PO SCH (09:02)
[2021-06-22] MEDS: Saccharomyces boulardii 250 MG CAP PO SCH (09:02)
[2021-06-22] MEDS: pyridOXINE 50 MG (B6) TAB PO SCH (09:02)
[2021-06-22] MEDS: Folic Acid 1 MG TAB PO SCH (09:02)
[2021-06-22] MEDS: Docusate 100 MG CAP PO SCH ×2 (09:03→20:31)
[2021-06-22] MEDS: guaiFENesin ER 600 MG TAB PO SCH ×2 (09:03→20:31)
[2021-06-22] MEDS: Doxycycline 100 MG CAP PO SCH (09:03)
[2021-06-22 13:05] LABS: Reticulocyte Count 2.5 % (0.5-1.5)
[2021-06-22 13:26] LABS: Anion Gap 22 mmol/L (10-20); BUN (Urea Nitrogen) 78 mg/dL (9.8-20.1); Calc. Creatinine Clearance 15 mL/min (70-130); Calcium 8.3 mg/dL (7.8-10.44); Carbon Dioxide 23 mmol/L (23-31); Chloride 87 mmol/L (98-107); Glucose 162 mg/dL (83-110); Potassium 4.7 mmol/L (3.5-5.1); Sodium 127 mmol/L (136-145)
[2021-06-22] MEDS ORDERED: Meropenem 1 GM in Sodium Chloride 0.9% 100 ML IVPB SCH (18:00)
[2021-06-22 20:27] LABS: Hemoglobin 7.2 g/dL (12.0-16.0)
[2021-06-22] MEDS: Latanoprost 0.005% Ophth Soln 2.5 ml Bottle L EYE SCH (20:31)
[2021-06-22 20:46] LABS: Anion Gap 21 mmol/L (10-20); BUN (Urea Nitrogen) 80 mg/dL (9.8-20.1); Calc. Creatinine Clearance 14 mL/min (70-130); Calcium 8.3 mg/dL (7.8-10.44); Carbon Dioxide 22 mmol/L (23-31); Chloride 88 mmol/L (98-107); Glucose 150 mg/dL (83-110); Potassium 4.4 mmol/L (3.5-5.1); Sodium 127 mmol/L (136-145)
[2021-06-23] MEDS: methylPREDNISolone Sod Succ 40 MG VIAL IVP SCH ×3 (02:11→17:24)
[2021-06-23] MEDS: Senokot S 8.6-50 MG TAB PO SCH ×3 (02:14→20:56)
[2021-06-23] MEDS ORDERED: Furosemide 40 MG/4 ML VIAL ONE (03:18)
[2021-06-23] MEDS ORDERED: Furosemide 40 MG/4 ML VIAL SLOW IVP SCH (03:45)
[2021-06-23 04:00] LABS: #Lymphocytes 0.5 thou/uL (1.20-3.40); #Monocytes 1.2 thou/uL (0.11-0.59); #Neutrophils 12.8 thou/uL (1.40-6.50); %Basophils 0.1 % (0.0-1.0); %Eosinophils 0.3 % (0.0-10.0); %Lymphocytes 3.4 % (21.0-51.0); %Neutrophils 88.2 % (42.0-75.0); Hemoglobin 8.3 g/dL (12.0-16.0); Mean Corpuscular HGB CONC 33.5 g/dL (32.0-36.0); Mean Corpuscular Volume 86.7 fL (78.0-98.0); Mean Platelet Volume 8.8 fL (7.4-10.4); Platelet Count 402 thou/uL (130-400); RBC Distribution Width 22.8 % (11.5-14.5); Red Blood Cell (RBC) Count 2.84 mill/uL (4.20-5.40); White Blood Cell (WBC) Count 14.5 thou/uL (4.8-10.8)
[2021-06-23 04:22] LABS: Anion Gap 22 mmol/L (10-20); BUN (Urea Nitrogen) 82 mg/dL (9.8-20.1); Calc. Creatinine Clearance 15 mL/min (70-130); Calcium 8.5 mg/dL (7.8-10.44); Carbon Dioxide 25 mmol/L (23-31); Chloride 86 mmol/L (98-107); Glucose 134 mg/dL (83-110); Magnesium 2.4 mg/dL (1.6-2.6); Potassium 4.5 mmol/L (3.5-5.1); Sodium 128 mmol/L (136-145)
[2021-06-23] MEDS: Meropenem 500 MG in Sodium Chloride 0.9% 100 ML IVPB SCH ×2 (05:36→15:19)
[2021-06-23] MEDS ORDERED: Sodium Bicarbonate 150 MEQ in Dextrose 5% in Water 1,000 ML IV SCH (06:08)
[2021-06-23] MEDS: Cyanocobalamin (Vitamin B-12) 1,000 MCG TAB PO SCH (09:13)
[2021-06-23] MEDS: pyridOXINE 50 MG (B6) TAB PO SCH (09:13)
[2021-06-23] MEDS: Folic Acid 1 MG TAB PO SCH (09:13)
[2021-06-23] MEDS: Metoprolol Tartrate 25 MG TAB PO SCH ×2 (09:14→20:56)
[2021-06-23] MEDS: guaiFENesin ER 600 MG TAB PO SCH ×2 (09:14→20:56)
[2021-06-23] MEDS: Aspirin 81 mg Enteric Coated Tablet PO SCH (09:15)
[2021-06-23 14:08] LABS: Creatinine, Urine 30.26 mg/dL (47-110); Sodium, Urine Less than 20 mmol/L (Not Available); Urea Nitrogen, Random Urine 321 mg/dl
[2021-06-23] MEDS ORDERED: Iron, Sodium Ferric Gluconate 250 MG in Sodium Chloride 0.9% 250 ML 250 ML IVPB SCH (16:15)
[2021-06-23] MEDS ORDERED: EPOETIN ALFA-EPBX (ESRD) 10,000 UNIT/ML VIAL SC SCH (17:00)
[2021-06-23] MEDS ORDERED: Lorazepam 0.5 MG TAB PO PRN (17:07)
[2021-06-23 17:32] LABS: Anion Gap 19 mmol/L (10-20); BUN (Urea Nitrogen) 84 mg/dL (9.8-20.1); Calc. Creatinine Clearance 15 mL/min (70-130); Calcium 8.9 mg/dL (7.8-10.44); Carbon Dioxide 28 mmol/L (23-31); Chloride 90 mmol/L (98-107); Glucose 131 mg/dL (83-110); Potassium 4.3 mmol/L (3.5-5.1); Sodium 133 mmol/L (136-145)
[2021-06-23] MEDS: Latanoprost 0.005% Ophth Soln 2.5 ml Bottle L EYE SCH (20:55)
[2021-06-24] MEDS: methylPREDNISolone Sod Succ 40 MG VIAL IVP SCH ×2 (02:30→09:49)
[2021-06-24] MEDS: Meropenem 500 MG in Sodium Chloride 0.9% 100 ML IVPB SCH ×2 (02:33→15:56)
[2021-06-24 04:49] LABS: #Eosinphils 0.1 thou/uL (0.0-0.7); #Lymphocytes 0.3 thou/uL (1.20-3.40); #Monocytes 0.9 thou/uL (0.11-0.59); #Neutrophils 13.2 thou/uL (1.40-6.50); %Basophils 0.1 % (0.0-1.0); %Eosinophils 0.5 % (0.0-10.0); %Lymphocytes 2.3 % (21.0-51.0); %Monocytes 6.4 % (0.0-10.0); %Neutrophils 90.7 % (42.0-75.0); Mean Corpuscular HGB CONC 33.5 g/dL (32.0-36.0); Mean Corpuscular Hemoglobin 29.2 pg (27.0-31.0); Mean Corpuscular Volume 87.2 fL (78.0-98.0); Platelet Count 408 thou/uL (130-400); RBC Distribution Width 23.4 % (11.5-14.5); Red Blood Cell (RBC) Count 2.75 mill/uL (4.20-5.40); White Blood Cell (WBC) Count 14.6 thou/uL (4.8-10.8)
[2021-06-24 04:57] LABS: Anion Gap 20 mmol/L (10-20); BUN (Urea Nitrogen) 84 mg/dL (9.8-20.1); Calc. Creatinine Clearance 16 mL/min (70-130); Calcium 8.9 mg/dL (7.8-10.44); Carbon Dioxide 27 mmol/L (23-31); Chloride 92 mmol/L (98-107); Glucose 124 mg/dL (83-110); Sodium 135 mmol/L (136-145)
[2021-06-24] MEDS: Aspirin 81 mg Enteric Coated Tablet PO SCH (09:38)
[2021-06-24] MEDS: Cyanocobalamin (Vitamin B-12) 1,000 MCG TAB PO SCH (09:40)
[2021-06-24] MEDS: pyridOXINE 50 MG (B6) TAB PO SCH (09:42)
[2021-06-24] MEDS: Senokot S 8.6-50 MG TAB PO SCH ×2 (09:42→20:54)
[2021-06-24] MEDS: Metoprolol Tartrate 25 MG TAB PO SCH ×2 (09:44→20:54)
[2021-06-24] MEDS: guaiFENesin ER 600 MG TAB PO SCH ×2 (09:45→20:54)
[2021-06-24] MEDS: Folic Acid 1 MG TAB PO SCH (09:46)
[2021-06-24] MEDS ORDERED: Furosemide 40 MG/4 ML VIAL SLOW IVP SCH (10:15)
[2021-06-24] MEDS: Latanoprost 0.005% Ophth Soln 2.5 ml Bottle L EYE SCH (21:02)
[2021-06-25] MEDS: Meropenem 500 MG in Sodium Chloride 0.9% 100 ML IVPB SCH ×2 (04:02→14:46)
[2021-06-25 05:04] LABS: #Basophils 0.1 thou/uL (0.0-0.2); #Eosinphils 0.4 thou/uL (0.0-0.7); #Lymphocytes 1.4 thou/uL (1.20-3.40); #Monocytes 1.8 thou/uL (0.11-0.59); %Basophils 0.3 % (0.0-1.0); %Eosinophils 2.2 % (0.0-10.0); %Lymphocytes 6.9 % (21.0-51.0); %Monocytes 9.2 % (0.0-10.0); %Neutrophils 81.4 % (42.0-75.0); Hemoglobin 9.3 g/dL (12.0-16.0); Mean Corpuscular HGB CONC 31.9 g/dL (32.0-36.0); Mean Corpuscular Hemoglobin 28.3 pg (27.0-31.0); Mean Corpuscular Volume 88.9 fL (78.0-98.0); Mean Platelet Volume 8.8 fL (7.4-10.4); Platelet Count 516 thou/uL (130-400); RBC Distribution Width 23.7 % (11.5-14.5); Red Blood Cell (RBC) Count 3.29 mill/uL (4.20-5.40); White Blood Cell (WBC) Count 19.7 thou/uL (4.8-10.8)
[2021-06-25 05:21] LABS: Anion Gap 17 mmol/L (10-20); BUN (Urea Nitrogen) 84 mg/dL (9.8-20.1); Calc. Creatinine Clearance 18 mL/min (70-130); Calcium 9.8 mg/dL (7.8-10.44); Carbon Dioxide 33 mmol/L (23-31); Chloride 96 mmol/L (98-107); Glucose 113 mg/dL (83-110); Potassium 4.1 mmol/L (3.5-5.1); Sodium 142 mmol/L (136-145)
[2021-06-25] MEDS: Aspirin 81 mg Enteric Coated Tablet PO SCH (09:14)
[2021-06-25] MEDS: Senokot S 8.6-50 MG TAB PO SCH ×2 (09:16→21:43)
[2021-06-25] MEDS: pyridOXINE 50 MG (B6) TAB PO SCH (09:17)
[2021-06-25] MEDS: Folic Acid 1 MG TAB PO SCH (09:17)
[2021-06-25] MEDS: guaiFENesin ER 600 MG TAB PO SCH ×2 (09:17→21:43)
[2021-06-25] MEDS: Cyanocobalamin (Vitamin B-12) 1,000 MCG TAB PO SCH (09:17)
[2021-06-25] MEDS: Metoprolol Tartrate 25 MG TAB PO SCH ×2 (09:17→21:43)
[2021-06-25] MEDS ORDERED: Furosemide 40 MG/4 ML VIAL SLOW IVP SCH (09:30)
[2021-06-25] MEDS: methylPREDNISolone Sod Succ 40 MG VIAL IVP SCH ×2 (11:17→21:41)
[2021-06-25] MEDS: Acetaminophen 325 MG TAB PO PRN (11:20)
[2021-06-25] MEDS: hydrALAZINE 20 MG/ML VIAL SLOW IVP PRN (14:56)
[2021-06-25] MEDS ORDERED: AcetaZOLAMIDE 250 MG TAB PO SCH (16:30)
[2021-06-25] MEDS ORDERED: Amlodipine 5 MG TAB PO SCH (16:30)
[2021-06-25] MEDS: Latanoprost 0.005% Ophth Soln 2.5 ml Bottle L EYE SCH (21:42)
[2021-06-25] MEDS: AcetaZOLAMIDE 250 MG TAB PO SCH (21:43)
[2021-06-26] MEDS: Meropenem 500 MG in Sodium Chloride 0.9% 100 ML IVPB SCH ×2 (02:53→13:39)
[2021-06-26 05:04] LABS: Albumin 3.6 g/dL (3.4-4.8); Anion Gap 17 mmol/L (10-20); BUN (Urea Nitrogen) 75 mg/dL (9.8-20.1); BUN/Creatinine Ratio 37.31; Calc. Creatinine Clearance 20 mL/min (70-130); Calcium 9.8 mg/dL (7.8-10.44); Carbon Dioxide 31 mmol/L (23-31); Chloride 97 mmol/L (98-107); Glucose 144 mg/dL (83-110); Phosphorus 4.8 mg/dL (2.3-4.7); Potassium 3.7 mmol/L (3.5-5.1); Sodium 141 mmol/L (136-145)
[2021-06-26] MEDS: hydrALAZINE 20 MG/ML VIAL SLOW IVP PRN (06:14)
[2021-06-26] MEDS ORDERED: Amlodipine 5 MG TAB PO SCH (09:00)
[2021-06-26] MEDS ORDERED: Furosemide 40 MG/4 ML VIAL SLOW IVP SCH (09:00)
[2021-06-26] MEDS: Aspirin 81 mg Enteric Coated Tablet PO SCH (09:15)
[2021-06-26] MEDS: Folic Acid 1 MG TAB PO SCH (09:15)
[2021-06-26] MEDS: guaiFENesin ER 600 MG TAB PO SCH ×2 (09:15→21:25)
[2021-06-26] MEDS: Senokot S 8.6-50 MG TAB PO SCH ×2 (09:15→21:24)
[2021-06-26] MEDS: Metoprolol Tartrate 25 MG TAB PO SCH ×2 (09:16→21:25)
[2021-06-26] MEDS: pyridOXINE 50 MG (B6) TAB PO SCH (09:16)
[2021-06-26] MEDS: AcetaZOLAMIDE 250 MG TAB PO SCH ×2 (09:16→21:24)
[2021-06-26] MEDS: methylPREDNISolone Sod Succ 40 MG VIAL IVP SCH ×2 (09:16→21:24)
[2021-06-26] MEDS: Cyanocobalamin (Vitamin B-12) 1,000 MCG TAB PO SCH (09:16)
[2021-06-26] MEDS: Acetaminophen 325 MG TAB PO PRN (09:52)
[2021-06-26] MEDS: Bisacodyl 10 MG SUPP PR SCH (21:24)
[2021-06-26] MEDS: Latanoprost 0.005% Ophth Soln 2.5 ml Bottle L EYE SCH (21:25)
[2021-06-27] MEDS: hydrALAZINE 20 MG/ML VIAL SLOW IVP PRN ×2 (00:17→04:06)
[2021-06-27] MEDS: Meropenem 500 MG in Sodium Chloride 0.9% 100 ML IVPB SCH ×2 (04:05→15:00)
[2021-06-27 05:22] LABS: Hemoglobin 9.9 g/dL (12.0-16.0); Mean Corpuscular HGB CONC 31.7 g/dL (32.0-36.0); Mean Corpuscular Volume 91.4 fL (78.0-98.0); Mean Platelet Volume 8.6 fL (7.4-10.4); Platelet Count 659 thou/uL (130-400); RBC Distribution Width 24.1 % (11.5-14.5); Red Blood Cell (RBC) Count 3.42 mill/uL (4.20-5.40)
[2021-06-27 05:32] LABS: Albumin 3.9 g/dL (3.4-4.8); Anion Gap 17 mmol/L (10-20); BUN (Urea Nitrogen) 85 mg/dL (9.8-20.1); Calc. Creatinine Clearance 20 mL/min (70-130); Calcium 10.1 mg/dL (7.8-10.44); Carbon Dioxide 29 mmol/L (23-31); Chloride 99 mmol/L (98-107); Glucose 139 mg/dL (83-110); Phosphorus 4.2 mg/dL (2.3-4.7); Potassium 3.9 mmol/L (3.5-5.1); Sodium 141 mmol/L (136-145)
[2021-06-27 05:46] LABS: Band 3 % (5-11); Lymphocytes 3 % (21-51); MDiff Complete? YES; Metamyelocyte 1 % (0-0); Monocytes 4 % (0-10); Myelocyte 5 % (0-0); Neutrophil 84 % (42-75); Platelet Morphology Comment Appears Increased; Polychromasia SLIGHT = 2-3 cells (100X) (0-2/hpf); White Blood Cell (WBC) Count 17.8 thou/uL (4.8-10.8)
[2021-06-27] MEDS: pyridOXINE 50 MG (B6) TAB PO SCH (09:32)
[2021-06-27] MEDS: Senokot S 8.6-50 MG TAB PO SCH ×2 (09:32→21:11)
[2021-06-27] MEDS: Aspirin 81 mg Enteric Coated Tablet PO SCH (09:32)
[2021-06-27] MEDS: Cyanocobalamin (Vitamin B-12) 1,000 MCG TAB PO SCH (09:32)
[2021-06-27] MEDS: Folic Acid 1 MG TAB PO SCH (09:32)
[2021-06-27] MEDS: guaiFENesin ER 600 MG TAB PO SCH ×2 (09:32→21:01)
[2021-06-27] MEDS: Amlodipine 10 MG TAB PO SCH (09:33)
[2021-06-27] MEDS: Metoprolol Tartrate 25 MG TAB PO SCH ×2 (09:33→21:01)
[2021-06-27] MEDS: methylPREDNISolone Sod Succ 40 MG VIAL IVP SCH ×2 (09:34→21:12)
[2021-06-27] MEDS: Bisacodyl 10 MG SUPP PR SCH (21:01)
[2021-06-27] MEDS: Latanoprost 0.005% Ophth Soln 2.5 ml Bottle L EYE SCH (21:11)
[2021-06-28] MEDS: Meropenem 500 MG in Sodium Chloride 0.9% 100 ML IVPB SCH ×2 (03:51→15:10)
[2021-06-28 04:52] LABS: Albumin 3.6 g/dL (3.4-4.8); Anion Gap 16 mmol/L (10-20); BUN (Urea Nitrogen) 79 mg/dL (9.8-20.1); BUN/Creatinine Ratio 43.41; Calc. Creatinine Clearance 21 mL/min (70-130); Calcium 9.8 mg/dL (7.8-10.44); Carbon Dioxide 29 mmol/L (23-31); Chloride 104 mmol/L (98-107); Glucose 124 mg/dL (83-110); Phosphorus 4.2 mg/dL (2.3-4.7); Potassium 4.1 mmol/L (3.5-5.1); Sodium 145 mmol/L (136-145)
[2021-06-28] MEDS: Senokot S 8.6-50 MG TAB PO SCH ×2 (08:18→20:43)
[2021-06-28] MEDS: Cyanocobalamin (Vitamin B-12) 1,000 MCG TAB PO SCH (08:19)
[2021-06-28] MEDS: Aspirin 81 mg Enteric Coated Tablet PO SCH (08:19)
[2021-06-28] MEDS: guaiFENesin ER 600 MG TAB PO SCH ×2 (08:19→20:43)
[2021-06-28] MEDS: methylPREDNISolone Sod Succ 40 MG VIAL IVP SCH (08:19)
[2021-06-28] MEDS: Amlodipine 10 MG TAB PO SCH (08:19)
[2021-06-28] MEDS: pyridOXINE 50 MG (B6) TAB PO SCH (08:19)
[2021-06-28] MEDS: Metoprolol Tartrate 25 MG TAB PO SCH ×2 (08:19→20:43)
[2021-06-28] MEDS: Folic Acid 1 MG TAB PO SCH (08:19)
[2021-06-28] MEDS ORDERED: Megestrol Acetate 800 MG/20 ML UDCUP PO SCH (09:30)
[2021-06-28 10:30] VITALS: BMI 23.1
[2021-06-28 12:13] LABS: SARS-CoV-2 PCR by NAA Not Detected (NotDetected)
[2021-06-28] MEDS: Bisacodyl 10 MG SUPP PR SCH (20:43)
[2021-06-28] MEDS: Latanoprost 0.005% Ophth Soln 2.5 ml Bottle L EYE SCH (20:46)
[2021-06-29] MEDS: hydrALAZINE 20 MG/ML VIAL SLOW IVP PRN (01:01)
[2021-06-29 08:17] LABS: Albumin 3.8 g/dL (3.4-4.8); Anion Gap 16 mmol/L (10-20); BUN (Urea Nitrogen) 62 mg/dL (9.8-20.1); BUN/Creatinine Ratio 42.47; Calc. Creatinine Clearance 25 mL/min (70-130); Calcium 10.1 mg/dL (7.8-10.44); Carbon Dioxide 25 mmol/L (23-31); Chloride 108 mmol/L (98-107); Glucose 109 mg/dL (83-110); Phosphorus 2.3 mg/dL (2.3-4.7); Potassium 3.5 mmol/L (3.5-5.1); Sodium 145 mmol/L (136-145)
[2021-06-29] MEDS ORDERED: Potassium Phosphate 15 MMOL in Sodium Chloride 0.9% 250 ML 250 ML IVPB SCH (09:15)
[2021-06-29] MEDS: Metoprolol Tartrate 25 MG TAB PO SCH ×2 (09:44→21:08)
[2021-06-29] MEDS: Folic Acid 1 MG TAB PO SCH (09:44)
[2021-06-29] MEDS: Aspirin 81 mg Enteric Coated Tablet PO SCH (09:44)
[2021-06-29] MEDS: pyridOXINE 50 MG (B6) TAB PO SCH (09:44)
[2021-06-29] MEDS: Senokot S 8.6-50 MG TAB PO SCH ×2 (09:45→21:08)
[2021-06-29] MEDS: guaiFENesin ER 600 MG TAB PO SCH ×2 (09:45→21:08)
[2021-06-29] MEDS: Megestrol Acetate 800 MG/20 ML UDCUP PO SCH (09:46)
[2021-06-29] MEDS: Cyanocobalamin (Vitamin B-12) 1,000 MCG TAB PO SCH (09:46)
[2021-06-29] MEDS: NIFEdipine XL 90 MG TAB PO SCH (10:04)
[2021-06-29] MEDS: Bisacodyl 10 MG SUPP PR SCH (21:07)
[2021-06-29] MEDS: Latanoprost 0.005% Ophth Soln 2.5 ml Bottle L EYE SCH (21:23)
[2021-06-30] MEDS: hydrALAZINE 20 MG/ML VIAL SLOW IVP PRN (03:30)
[2021-06-30 04:33] LABS: Hemoglobin 10.2 g/dL (12.0-16.0); Mean Corpuscular HGB CONC 32.2 g/dL (32.0-36.0); Mean Corpuscular Hemoglobin 28.8 pg (27.0-31.0); Mean Corpuscular Volume 89.3 fL (78.0-98.0); Mean Platelet Volume 8.5 fL (7.4-10.4); Platelet Count 607 thou/uL (130-400); RBC Distribution Width 23.4 % (11.5-14.5); Red Blood Cell (RBC) Count 3.55 mill/uL (4.20-5.40); White Blood Cell (WBC) Count 23.1 thou/uL (4.8-10.8)
[2021-06-30 04:52] LABS: Albumin 3.6 g/dL (3.4-4.8); Anion Gap 16 mmol/L (10-20); BUN (Urea Nitrogen) 52 mg/dL (9.8-20.1); BUN/Creatinine Ratio 37.14; Calc. Creatinine Clearance 26 mL/min (70-130); Calcium 9.7 mg/dL (7.8-10.44); Carbon Dioxide 21 mmol/L (23-31); Chloride 113 mmol/L (98-107); Glucose 104 mg/dL (83-110); Phosphorus 2.9 mg/dL (2.3-4.7); Potassium 3.4 mmol/L (3.5-5.1); Sodium 147 mmol/L (136-145)
[2021-06-30] MEDS: Aspirin 81 mg Enteric Coated Tablet PO SCH (09:40)
[2021-06-30] MEDS: Metoprolol Tartrate 25 MG TAB PO SCH (09:40)
[2021-06-30] MEDS: Folic Acid 1 MG TAB PO SCH (09:40)
[2021-06-30] MEDS: Senokot S 8.6-50 MG TAB PO SCH (09:40)
[2021-06-30] MEDS: NIFEdipine XL 90 MG TAB PO SCH (09:40)
[2021-06-30] MEDS: guaiFENesin ER 600 MG TAB PO SCH (09:41)
[2021-06-30] MEDS: pyridOXINE 50 MG (B6) TAB PO SCH (09:41)
[2021-06-30] MEDS: Megestrol Acetate 800 MG/20 ML UDCUP PO SCH (09:41)
[2021-06-30] MEDS: Cyanocobalamin (Vitamin B-12) 1,000 MCG TAB PO SCH (09:41)
[2021-06-30 11:54] VITALS: BP 110/51; TEMP 98.4
== END 2021-06-30 13:38 | disposition hospice, inpatient (51) | DRG 871 ==
LOC: ERS 21:34 → ERHOLD 23:44 → 2NO 06-21 02:23
PROVIDERS: ADMIT Internal Medicine; ATTEND Internal Medicine
PROC: 3E03329 Introduction of Other Anti-infective into Peripheral Vein, Percutaneous Approach (ICD-10-PCS; 2021-06-20)
PROC: 30233N1 Transfusion of Nonautologous Red Blood Cells into Peripheral Vein, Percutaneous Approach (ICD-10-PCS; principal; 2021-06-22)
PROC: 3E0G76Z Introduction of Nutritional Substance into Upper GI, Via Natural or Artificial Opening (ICD-10-PCS; 2021-06-28)
DX: A41.9 Sepsis, unspecified organism (principal); Z66 Do not resuscitate; Z20.822 Contact with and (suspected) exposure to COVID-19; Z51.5 Encounter for palliative care; J69.0 Pneumonitis due to inhalation of food and vomit; G93.41 Metabolic encephalopathy; J96.01 Acute respiratory failure with hypoxia; I50.33 Acute on chronic diastolic (congestive) heart failure; J18.9 Pneumonia, unspecified organism; N17.9 Acute kidney failure, unspecified; E87.1 Hypo-osmolality and hyponatremia; E87.2 Acidosis; I13.0 Hypertensive heart and chronic kidney disease with heart failure and stage 1 through stage 4 chronic kidney disease, or unspecified chronic kidney disease; D62 Acute posthemorrhagic anemia; F05 Delirium due to known physiological condition; E87.3 Alkalosis; I47.1 Supraventricular tachycardia; R65.20 Severe sepsis without septic shock; K21.9 Gastro-esophageal reflux disease without esophagitis; E78.5 Hyperlipidemia, unspecified; I44.7 Left bundle-branch block, unspecified; N18.30 Chronic kidney disease, stage 3 unspecified; D63.1 Anemia in chronic kidney disease; E83.42 Hypomagnesemia; D50.9 Iron deficiency anemia, unspecified; K44.9 Diaphragmatic hernia without obstruction or gangrene; F41.9 Anxiety disorder, unspecified; M41.80 Other forms of scoliosis, site unspecified; H40.9 Unspecified glaucoma; I08.1 Rheumatic disorders of both mitral and tricuspid valves; R13.10 Dysphagia, unspecified; E86.0 Dehydration; T46.5X5A Adverse effect of other antihypertensive drugs, initial encounter; T39.395A Adverse effect of other nonsteroidal anti-inflammatory drugs [NSAID], initial encounter; T50.1X5A Adverse effect of loop [high-ceiling] diuretics, initial encounter; E87.5 Hyperkalemia; Z88.0 Allergy status to penicillin; Z98.890 Other specified postprocedural states; Z28.21 Immunization not carried out because of patient refusal; Z90.49 Acquired absence of other specified parts of digestive tract; Z90.89 Acquired absence of other organs; Z90.710 Acquired absence of both cervix and uterus; Z79.899 Other long term (current) drug therapy; Z98.49 Cataract extraction status, unspecified eye; Z82.49 Family history of ischemic heart disease and other diseases of the circulatory system
CPT/HCPCS: 36415; 36430; 71045; 71275; 74230; 76770; 80048; 80053; 80069; 81001; 82010; 82040; 82550; 82553; 82570; 82728; 83540; 83550; 83605; 83690; 83735; 83880; 83930; 83935; 84300; 84443; 84484; 84540; 85025; 85027; 85046; 86850; 86900; 86901; 87040; 93005; 94640; 96374; 96375; 97139; J0360; J0696; J1940; J2185; J2916; J2920; J2930; J3475; J3490; J7050; J7070; J7611; J7620; P9016; P9047; Q5105; U0003; U0005

== ENCOUNTER 2022-06-02 09:38 | Emergency (ER) | payer MEDICARE, BC ==
[2022-06-02 11:10] LABS: ALT (SGPT) 17 U/L (8-55); AST (SGOT) 24 U/L (5-34); Albumin 3.5 g/dL (3.4-4.8); Alkaline Phosphatase 75 U/L (40-110); Anion Gap 15 mmol/L (10-20); BUN (Urea Nitrogen) 26 mg/dL (9.8-20.1); Bilirubin, Total 0.3 mg/dL (0.2-1.2); Calc. Creatinine Clearance 0 mL/min (70-130); Calcium 8.9 mg/dL (7.8-10.44); Carbon Dioxide 24 mmol/L (23-31); Chloride 101 mmol/L (98-107); Estimated GFR 41; Globulin 3.2 g/dL (2.4-3.5); Glucose 98 mg/dL (83-110); Potassium 3.6 mmol/L (3.5-5.1); Protein, Total 6.7 g/dL (5.8-8.1); Sodium 136 mmol/L (136-145)
== END 2022-06-02 10:30 | disposition home or self-care (01) ==
LOC: ERS 09:38
DX: U07.1 COVID-19 (principal); E78.5 Hyperlipidemia, unspecified; I10 Essential (primary) hypertension
CPT/HCPCS: 36415; 80053; 99283

== ENCOUNTER 2022-07-03 10:04 | Outpatient (CLI) | payer MEDICARE, BC | END 2022-07-03 10:05 | disposition home or self-care (01) | LOC: ULT 10:04 | PROVIDERS: ATTEND Student in an Organized Health Care Education/Training Program | DX: R22.9 Localized swelling, mass and lump, unspecified (principal) | CPT/HCPCS: 76999 ==